=== PATIENT | female | born 1940 | race Hispanic/Latino ===

== ENCOUNTER 2017-11-26 14:45 | Inpatient (IN) | payer MEDICARE, OTHER ==
[~2017-11-26] VITALS: Ht 157.5 cm; Wt 83.2 kg
[2017-12-25] MEDS ORDERED: AMLO10TA7 PO (15:58)
[2017-12-25] MEDS ORDERED: METO100T14 PO (15:58)
[2018-10-28 16:38] VITALS: BP 143/67
[2018-10-28 16:45] LABS: BASOPHILS % (AUTO) 0.6 % (0.0-5.0); EOSINOPHILS % (AUTO) 5.5 % (0.0-8.0); HEMATOCRIT 36.8 % (36-48); LYMPHOCYTES % (AUTO) 32.9 % (21.0-51.0); MEAN CORPUSCULAR HEMOGLOBIN 30.8 pg (27.0-33.0); MEAN CORPUSCULAR HGB CONC 34.3 g/dL (32.0-36.0); MEAN CORPUSCULAR VOLUME 89.8 fL (79-99); MONOCYTES % (AUTO) 8.6 % (3.0-13.0); NEUTROPHILS % (AUTO) 52.4 % (40.0-77.0); NUCLEATED RED BLOOD CELLS 0.1 % (0.0-0.19); PLATELET COUNT (AUTO) 237 K/uL (130-400); RED CELL DISTRIBUTION WIDTH 13.2 % (11.0-15.5); WHITE BLOOD COUNT (AUTO) 6.9 K/uL (4.8-10.8)
[2018-10-28 16:45] LABS: APPEARANCE,URINE Clear (CLEAR); BILIRUBIN,URINE Negative (NEGATIVE); COLOR,URINE Yellow (YELLOW); GLUCOSE, URINE (UA) Negative (NEGATIVE); KETONES,URINE Negative (NEGATIVE); LEUKOCYTE ESTERASE ,URINE Negative (NEGATIVE); NITRATE,URINE Negative (NEGATIVE); OCCULT BLOOD,URINE Negative (NEGATIVE); PH,URINE 6.5 (5.0-8.0); PROTEIN,URINE Negative (NEGATIVE)
[2018-10-28 16:58] LABS: INR 0.91 (0.85-1.15); PARTIAL THROMBOPLASTIN TIME 27.3 SEC (26.3-35.5); PROTHROMBIN TIME 9.6 SEC (9.6-11.6)
[2018-10-28] MEDS ORDERED: CLOP75TA14 PO (17:21)
--- NOTE | 2018-10-28 18:30 | NUR ---
PLAVIX PT STATES THAT SHE TAKES PLAVIX. COMPARED TO CARDIAC CLEARANCE STATES EILIQUIS. INFORMED HER TO BRING ALL MEDICATIONS BOTTLES TO COMPARE. INFORMED DR. ZURITA SHE TOOK ELIQUIS AND STOPPED 2 DAYS AGO. PROCEED WITH PLANNED PROCEDURE.
[2018-10-29] VITALS (22 sets, daily range): BP systolic 126–159; BP diastolic 61–88
--- NOTE | 2018-10-29 07:30 | NUR ---
POTENTIAL FOR INFECTION: NO SHAVING TO RIGHT LEG / KNEE VOICED PER SONI ALLEN MA. WIPED WITH SANDY: 2% CHLORHEXIDINE GLUCONATE CLOTH PATIENTS PRE-OP SKIN PREP PER SONI ALLEN MA.
[2018-10-29] MEDS: CEFAZOLIN SODIUM 1 GM VIAL IVP SCH ×3 (08:00→19:58)
[2018-10-29] MEDS ORDERED: LACTATED RINGERS 1000ML 1,000 ML IV ONE (08:01)
[2018-10-29] MEDS ORDERED: ACETAMINOPHEN EXTRA STRENGTH 500 MG TABLET ONE (08:21)
[2018-10-29] MEDS ORDERED: OXYCODONE HCL 10 MG TAB.SR.12H PO ONE (08:22)
[2018-10-29] MEDS ORDERED: CEFAZOLIN SODIUM 1 GM VIAL ONE ×2 (08:28→11:31)
[2018-10-29] MEDS ORDERED: THROMBIN-JMI 5000 UNIT/VIAL TP ONE (08:29)
[2018-10-29] MEDS ORDERED: SIMV40TA59 PO (08:51)
[2018-10-29] MEDS ORDERED: APIX5TAB PO (08:51)
[2018-10-29] MEDS ORDERED: HYDR25TA PO (08:51)
[2018-10-29] MEDS ORDERED: AMLO10TA7 PO (08:51)
[2018-10-29] MEDS ORDERED: ESCI10TA54 PO (08:51)
[2018-10-29] MEDS ORDERED: MEMA10TA20 PO (08:51)
[2018-10-29] MEDS ORDERED: DEXAMETHASONE SOD PHOSPHATE 10MG/ML 1ML VIAL ONE (10:45)
[2018-10-29] MEDS ORDERED: LIDOCAINE PF 2% 5ML ABBOJECT ONE ×2 (10:45→10:48)
[2018-10-29] MEDS ORDERED: SUCCINYLCHOLINE 200MG/10ML SYR ONE (10:45)
[2018-10-29] MEDS ORDERED: PROPOFOL 10 MG/ML 20ML VIAL IV ONE (10:46)
[2018-10-29] MEDS ORDERED: ONDANSETRON HCL 4 MG/2 ML VIAL ONE (10:46)
[2018-10-29] MEDS ORDERED: ROCURONIUM 10MG/1ML SYR 10 MG/ML ML ONE (10:46)
[2018-10-29] MEDS ORDERED: GLYCOPYRROLATE 1 MG/5 ML SYRINGE ONE (10:46)
[2018-10-29] MEDS ORDERED: NEOSTIGMINE 5MG/5ML SYR IV ONE (10:46)
[2018-10-29] MEDS ORDERED: MIDAZOLAM HCL 1 MG/ML 2ML VIAL ONE (10:46)
[2018-10-29] MEDS ORDERED: FENTANYL CITRATE PF 50 MCG/1 ML 2ML VIAL ONE (10:46)
[2018-10-29] MEDS ORDERED: ROPIVACAINE 0.5% 5MG/ML 30ML IJ ONE (10:56)
[2018-10-29] MEDS ORDERED: CALCIUM CARBONATE 500 MG TABLET PO PRN (13:15)
[2018-10-29] MEDS ORDERED: ONDANSETRON HCL 4 MG/2 ML VIAL IVP PRN (13:15)
[2018-10-29] MEDS ORDERED: DiphenhydrAMINE HCL 50 MG/ML VIAL IVP PRN (13:15)
[2018-10-29] MEDS ORDERED: POTASSIUM CHLORIDE 20MEQ/100ML 100 ML IV PRN (13:15)
[2018-10-29] MEDS ORDERED: OXYCODONE HCL 5 MG TAB PO PRN (13:15)
[2018-10-29] MEDS ORDERED: TRAMADOL HCL 50 MG TABLET PO PRN (13:15)
[2018-10-29] MEDS ORDERED: KETOROLAC TROMETHAMINE 15MG/ML IV PRN (13:15)
[2018-10-29] MEDS ORDERED: POTASSIUM CHLORIDE 10% ELIXIR 20 MEQ/15 ML UDCUP PO PRN (13:15)
[2018-10-29] MEDS ORDERED: POTASSIUM CHLORIDE 20 MEQ ERTAB PO PRN (13:15)
[2018-10-29] MEDS ORDERED: LIDOCAINE HCL-MPF 1% 2ML VIAL IVP PRN (13:15)
[2018-10-29] MEDS ORDERED: TEMAZEPAM 15 MG CAPSULE PO PRN (13:15)
[2018-10-29] MEDS ORDERED: FERROUS FUMARATE 324 MG TABLET PO PRN (13:15)
[2018-10-29] MEDS ORDERED: MEPERIDINE-PF 25 MG/ML SYG ONE ×2 (14:02→14:10)
--- NOTE | 2018-10-29 14:40 | NUR ---
Admitted pt to room 432, very sleepy but arousable, no distress observed. Right knee dressing clean and dry. Daughter at beside visiting
--- NOTE | 2018-10-29 16:21 | NUR ---
INITIAL MET W PT AND FAMILY, PT S/P TKA, W REQUEST FOR REHAB; , PT DROWSY BUT ORIENTED LIVES W SPOUSE, PREV IND OF ADLS, NO DME, REQ FOR [facility], REFERRAL SENT, PENDING PT NOTES, WILL FOLLOW. DME ORDER TO [facility] Addendum: 10/31/18 at 1623 by JAVIER BATISTA RN Amended: Links added.
[2018-10-29] MEDS: SODIUM CHLORIDE 0.9% 1000ML 1,000 ML IV SCH (16:55)
[2018-10-29] MEDS ORDERED: NON-FORMULARY MEDICATION 1 EACH (Escitalopram Oxalate 10 MG) PO PRN (20:00)
[2018-10-29] MEDS: MEMANTINE HCL 5 MG TABLET PO SCH (22:06)
[2018-10-29] MEDS: SIMVASTATIN 20 MG TABLET PO SCH (22:06)
[2018-10-29] MEDS: CELECOXIB 200 MG CAP PO SCH (22:06)
[2018-10-29] MEDS: PREGABALIN 25 MG CAP PO SCH (22:06)
[2018-10-29] MEDS: METOPROLOL TARTRATE 50 MG TAB PO SCH (22:07)
[2018-10-30] VITALS (7 sets, daily range): BP systolic 91–128; BP diastolic 45–75
[2018-10-30] MEDS: CEFAZOLIN SODIUM 1 GM VIAL IVP SCH (03:19)
[2018-10-30] MEDS: SODIUM CHLORIDE 0.9% 1000ML 1,000 ML IV SCH ×2 (03:21→08:58)
[2018-10-30 05:36] LABS: HEMATOCRIT 29.2 % (36-48); MEAN CORPUSCULAR HEMOGLOBIN 31.4 pg (27.0-33.0); MEAN CORPUSCULAR VOLUME 89.8 fL (79-99); NUCLEATED RED BLOOD CELLS 0.1 % (0.0-0.19); PLATELET COUNT (AUTO) 188 K/uL (130-400); RED BLOOD CELL COUNT(AUTO) 3.25 MIL/uL (4.00-5.50); RED CELL DISTRIBUTION WIDTH 13.4 % (11.0-15.5); WHITE BLOOD COUNT (AUTO) 8.8 K/uL (4.8-10.8)
[2018-10-30 05:57] LABS: POTASSIUM 3.6 mmol/L (3.5-5.1)
[2018-10-30] MEDS: APIXABAN 5 MG TABLET PO SCH ×2 (08:44→21:42)
[2018-10-30] MEDS: POLYETHYLENE GLYCOL 3350 17 GM POWD.PACK PO SCH (08:44)
[2018-10-30] MEDS: CELECOXIB 200 MG CAP PO SCH ×2 (08:44→21:42)
[2018-10-30] MEDS: FAMOTIDINE 20MG TAB 20 MG TAB PO SCH (08:44)
[2018-10-30] MEDS: PREGABALIN 25 MG CAP PO SCH ×2 (08:45→21:42)
[2018-10-30] MEDS: METOPROLOL TARTRATE 50 MG TAB PO SCH ×2 (08:49→21:42)
[2018-10-30] MEDS: AMLODIPINE BESYLATE 5 MG TAB PO SCH (08:49)
[2018-10-30] MEDS: HYDROCHLOROTHIAZIDE 25 MG TABLET PO SCH (08:49)
--- NOTE | 2018-10-30 09:00 | NUR ---
PT NOTES SENT, AUTH PENDING Addendum: 10/31/18 at 1628 by JAVIER BATISTA RN CM Amended: Links added.
[2018-10-30] MEDS: OXYCODONE HCL 5 MG TAB PO PRN ×2 (11:05→13:26)
[2018-10-30] MEDS: SIMVASTATIN 20 MG TABLET PO SCH (21:42)
[2018-10-30] MEDS: MEMANTINE HCL 5 MG TABLET PO SCH (21:42)
[2018-10-31 03:39] VITALS: BP 102/42
[2018-10-31 07:30] VITALS: BP 110/54
[2018-10-31] MEDS: METOPROLOL TARTRATE 50 MG TAB PO SCH (09:00)
[2018-10-31] MEDS: AMLODIPINE BESYLATE 5 MG TAB PO SCH (09:00)
[2018-10-31] MEDS: HYDROCHLOROTHIAZIDE 25 MG TABLET PO SCH (09:00)
[2018-10-31] MEDS: PREGABALIN 25 MG CAP PO SCH (09:01)
[2018-10-31] MEDS: APIXABAN 5 MG TABLET PO SCH (09:01)
[2018-10-31] MEDS: FAMOTIDINE 20MG TAB 20 MG TAB PO SCH (09:02)
[2018-10-31] MEDS: POLYETHYLENE GLYCOL 3350 17 GM POWD.PACK PO SCH (09:02)
[2018-10-31] MEDS: CELECOXIB 200 MG CAP PO SCH (09:02)
[2018-10-31] MEDS: OXYCODONE HCL 5 MG TAB PO PRN (09:05)
[2018-10-31 11:00] VITALS: BP 101/44
--- NOTE | 2018-10-31 13:30 | NUR ---
DEE WOOTEN FOR DE[facility] L[facility] ORTEGAPLAN TODAY TO FACILITY Addendum: 10/31/18 at 1629 by JAVIER BATISTA RN CM Amended: Links added.
[2018-10-31] MEDS ORDERED: OXYC5 PO (15:06)
[2018-10-31 16:00] VITALS: BP 123/57
--- NOTE | 2018-10-31 17:01 | NUR ---
[facility] FAXED- [facility] NOT WORKING [facility] COPY IN CHART Addendum: 11/01/18 at 0926 by JAVIER BATISTA RN CM Amended: Links added.
--- NOTE | 2018-10-31 18:50 | NUR ---
DISCHARGE DISCHARGE TEACHING DONE WITH PATIENT AND FAMILY USING TEACHBACK METHOD, VERBALIZED UNDERSTANDING. NO NOTED SOB OR DISTRESS. NEW MEDICATION ADMINISTRATION TEACHING DONE WITH PATIENT, VERBALIZED UNDERSTANDING. PT AWARE OF NEED TO ATTEND DR. ZURITA APPOINTMENT. DRESSING TO KNEE DRY AND INTACT. DRESSING CHANGED PER DR. ZURITA, INCISION IS DRY AND INTACT. DRESSING TEACHING DONE WITH PATIENT, VERBALIZED UNDERSTANDING. IV REMOVED, CATH TIP INTACT. PENDING TO BE TRANSFERRED OUT VIA PRIVATE VEHICLE. REPORT CALLED TO [facility].
[2018-11-01] MEDS ORDERED: BISACODYL 10 MG SUPP.RECT RC PRN (13:15)
== END 2018-10-31 19:17 | disposition home health service (06) | DRG 470 ==
LOC: EDSTATUS 14:45 → DAHIP 10-29 07:13 → 4AH 10-29 13:36
PROVIDERS: ADMIT Orthopaedic Surgery; ATTEND Orthopaedic Surgery
PROC: 0SRC0J9 Replacement of Right Knee Joint with Synthetic Substitute, Cemented, Open Approach (ICD-10-PCS; principal; 2018-10-29 10:40)
PROC: 0SUV09Z Supplement Right Knee Joint, Tibial Surface with Liner, Open Approach (ICD-10-PCS; 2018-10-29 10:40)
DX: M17.11 Unilateral primary osteoarthritis, right knee (principal); E78.5 Hyperlipidemia, unspecified; I48.0 Paroxysmal atrial fibrillation; F03.90 Unspecified dementia, unspecified severity, without behavioral disturbance, psychotic disturbance, mood disturbance, and anxiety; I35.0 Nonrheumatic aortic (valve) stenosis; G89.29 Other chronic pain; I11.9 Hypertensive heart disease without heart failure; Z79.01 Long term (current) use of anticoagulants; Z88.8 Allergy status to other drugs, medicaments and biological substances; Z86.73 Personal history of transient ischemic attack (TIA), and cerebral infarction without residual deficits; Z90.710 Acquired absence of both cervix and uterus; Z82.49 Family history of ischemic heart disease and other diseases of the circulatory system
CPT/HCPCS: 36415; 80048; 81003; 85025; 85027; 85610; 85730; 87641; 88305; 88311; 97039; G0378; J0330; J0690; J1100; J2001; J2175; J2250; J2405; J2704; J2710; J2795; J3010; J3490; J7030; J7120

== ENCOUNTER → 2018-03-04 | Outpatient (CLI) | payer MEDICARE ==
[~2018-03-04] MED LIST: AMLO10TA6 PO; ASPI-1181 PO; LISI40TA4 PO; METO100T14 PO
== END | disposition home or self-care (01) ==
LOC: SHCH 14:04
PROVIDERS: ATTEND Internal Medicine Cardiovascular Disease
DX: I25.119 Atherosclerotic heart disease of native coronary artery with unspecified angina pectoris (principal); I51.7 Cardiomegaly; R06.02 Shortness of breath; Z95.2 Presence of prosthetic heart valve
CPT/HCPCS: 93306

== ENCOUNTER → 2018-10-01 | Outpatient (CLI) | payer MEDICARE ==
[~2018-10-01] MED LIST changes: -AMLO10TA6 PO; +AMLO10TA7 PO
== END | disposition home or self-care (01) ==
LOC: RAH 10:32
PROVIDERS: ATTEND Internal Medicine
DX: Z01.818 Encounter for other preprocedural examination (principal); I70.0 Atherosclerosis of aorta; I10 Essential (primary) hypertension; Q25.46 Tortuous aortic arch
CPT/HCPCS: 71046

== ENCOUNTER 2019-12-22 06:17 | Day surgery (SDC) | payer MEDICARE ==
[2019-12-21 11:56] LABS: BASOPHILS % (AUTO) 0.9 % (0.0-5.0); EOSINOPHILS % (AUTO) 5.5 % (0.0-8.0); HEMATOCRIT 36.8 % (36-48); LYMPHOCYTES % (AUTO) 26.2 % (21.0-51.0); MEAN CORPUSCULAR HEMOGLOBIN 30.2 pg (27.0-33.0); MEAN CORPUSCULAR HGB CONC 33.7 g/dL (32.0-36.0); MEAN CORPUSCULAR VOLUME 89.5 fL (79-99); MONOCYTES % (AUTO) 8.8 % (3.0-13.0); NEUTROPHILS % (AUTO) 58.5 % (40.0-77.0); PLATELET COUNT (AUTO) 241 K/uL (130-400); RED BLOOD CELL COUNT(AUTO) 4.11 MIL/uL (4.00-5.50); RED CELL DISTRIBUTION WIDTH 12.7 % (11.0-15.5); WHITE BLOOD COUNT (AUTO) 6.7 K/uL (4.8-10.8)
[2019-12-21 12:05] LABS: CREATININE 1.3 mg/dL (0.5-1.5); POTASSIUM 3.8 mmol/L (3.5-5.1)
[2019-12-21 12:10] LABS: INR 0.92 (0.85-1.15); PARTIAL THROMBOPLASTIN TIME 26.9 SEC (26.3-35.5)
[2019-12-21 14:11] VITALS: BP 135/70
[2019-12-22] VITALS (13 sets, daily range): BP systolic 105–158; BP diastolic 65–90
[~2019-12-22] VITALS: Ht 160 cm; Wt 81.6 kg
[~2019-12-22 06:17] MED LIST changes: -ASPI-1181 PO; +ASPI-1443 PO; +CEFAZOLIN SODIUM 1 GM VIAL IVP SCH; +HYDR25TA PO; +LISI2.5T2 PO; -LISI40TA4 PO; -METO100T14 PO; +METO25TA6 PO; +ROSU5TAB12 PO; +SODIUM CHLORIDE 0.9% 500ML 500 ML IV SCH
[2019-12-22] MEDS ORDERED: METO25TA6 PO (07:07)
[2019-12-22] MEDS ORDERED: SODIUM CHLORIDE 0.9% 1000ML 1,000 ML IV ONE (07:08)
[2019-12-22] MEDS ORDERED: BUPIVACAINE/PF 0.25% 30ML VIAL IJ ONE (07:21)
[2019-12-22] MEDS ORDERED: MEPERIDINE-PF 25 MG/ML SYG ONE ×2 (07:21→07:22)
[2019-12-22] MEDS ORDERED: MIDAZOLAM HCL 1 MG/ML 2ML VIAL ONE ×2 (07:21→07:22)
[2019-12-22] MEDS ORDERED: IOHEXOL-350 50ML VIAL IV ONE (07:21)
[2019-12-22] MEDS ORDERED: CEFAZOLIN SODIUM 1 GM VIAL ONE (07:21)
[2019-12-22] MEDS ORDERED: LIDOCAINE HCL 1% MDV 50ML VIAL ONE (07:21)
[2019-12-22] MEDS ORDERED: TRAM50TA4 PO (09:34)
--- NOTE | 2019-12-22 15:17 | NUR ---
REPORT RECEIVED REPORT FROM LAUREN RICARDO. PT AAOX3. SITE TO LEFT UPPER CHEST SOFT TO TOUCH. SLIGHT SANGUINOUS MARKED BY LAUREN RICARDO. DRSG TO MID LEFT STERNAL SOFT TO TOUCH. SANGUINOUS DRSG MARKED BY LAUREN RICARDO. PT DENIES ANY PAIN AT THIS TIME.
--- NOTE | 2019-12-22 15:27 | NUR ---
Gave report to Alpa Sue RN, pt stable no distress noted, pacemaker site to left chest wall swelling x2, both dressing marked at blood spot, pending xray and md to evaluate xray, patient will continue to be monitored.
--- NOTE | 2019-12-22 16:05 | NUR ---
SR ERICK, VETERANS SERVICES SPECIALIST FOR [employer] HERE TO EVALUATE PM.
--- NOTE | 2019-12-22 16:10 | NUR ---
CHEST XRAY CHEST XRAY TAKEN AT BEDSIDE.
--- NOTE | 2019-12-22 16:13 | NUR ---
SITE CHECK SITE TO LEFT UPPER CHEST SOFT TO TOUCH. SLIGHT SANGUINOUS MARKED BY LAURNE RICARDO. DRSG TO MID LEFT STERNAL SOFT TO TOUCH. SANGUINOUS DRSG MARKED BY LAUREN RICARDO. PT DENIES ANY PAIN AT THIS TIME.
--- NOTE | 2019-12-22 16:38 | NUR ---
CHEST XRAY DR. RUDD EVALUATED CHEST X RAY OF PT.
--- NOTE | 2019-12-22 16:50 | NUR ---
DR. TOBIN RUDD ON PHONE. PT CAN BE DISCHARGED HOME.
== END 2019-12-22 17:35 | disposition home or self-care (01) ==
LOC: DAH 06:17
PROVIDERS: ATTEND Internal Medicine Cardiovascular Disease
DX: I44.2 Atrioventricular block, complete (principal); Z45.09 Encounter for adjustment and management of other cardiac device; I49.5 Sick sinus syndrome; I48.0 Paroxysmal atrial fibrillation; E78.5 Hyperlipidemia, unspecified; I10 Essential (primary) hypertension; M19.90 Unspecified osteoarthritis, unspecified site; F03.90 Unspecified dementia, unspecified severity, without behavioral disturbance, psychotic disturbance, mood disturbance, and anxiety; Z79.01 Long term (current) use of anticoagulants; Z79.899 Other long term (current) drug therapy; Z95.2 Presence of prosthetic heart valve; Z79.82 Long term (current) use of aspirin; Z86.73 Personal history of transient ischemic attack (TIA), and cerebral infarction without residual deficits; Z98.890 Other specified postprocedural states; Z90.710 Acquired absence of both cervix and uterus; Z82.49 Family history of ischemic heart disease and other diseases of the circulatory system; Z88.8 Allergy status to other drugs, medicaments and biological substances; Z96.651 Presence of right artificial knee joint
CPT/HCPCS: 33208; 33286; 36415; 71045; 80048; 85025; 85610; 85730; 93005; A4215; A4216; A4221; A4222; A4223 ×3; A4606; A4649; A4663; A6258; A6402; C1785; C1898 ×2; J0690; J2175 ×2; J2250 ×2; J3490 ×2; J7030; 99156; 99157; Q9967

== ENCOUNTER → 2021-05-02 | Outpatient (CLI) | payer MEDICARE ==
[~2021-05-02] MED LIST changes: +AMLO-258 PO; -AMLO10TA7 PO; -CEFAZOLIN SODIUM 1 GM VIAL IVP SCH; +LISI2.5T13 PO; -LISI2.5T2 PO; -SODIUM CHLORIDE 0.9% 500ML 500 ML IV SCH; +TRAM50TA4 PO
== END | disposition home or self-care (01) ==
LOC: RAH 16:22
PROVIDERS: ATTEND Internal Medicine
DX: M19.031 Primary osteoarthritis, right wrist (principal); M79.641 Pain in right hand; W19.XXXA Unspecified fall, initial encounter; Y93.89 Activity, other specified; Y92.89 Other specified places as the place of occurrence of the external cause; Y99.8 Other external cause status
CPT/HCPCS: 73110; 73130

== ENCOUNTER → 2023-04-19 | Outpatient (CLI) | payer MEDICARE | END | disposition home or self-care (01) | LOC: RAH 11:57 | PROVIDERS: ATTEND Internal Medicine | DX: M47.815 Spondylosis without myelopathy or radiculopathy, thoracolumbar region (principal); Z95.0 Presence of cardiac pacemaker | CPT/HCPCS: 71046 ==

== ENCOUNTER → 2023-06-19 | Outpatient (CLI) | payer MEDICARE | END | disposition home or self-care (01) | LOC: RAH 12:47 | PROVIDERS: ATTEND Internal Medicine Cardiovascular Disease | DX: I07.1 Rheumatic tricuspid insufficiency (principal); Z95.2 Presence of prosthetic heart valve | CPT/HCPCS: 93306 ==

== ENCOUNTER → 2025-02-26 | Outpatient (CLI) | payer MEDICARE ==
[~2025-02-26] MED LIST changes: -ROSU5TAB12 PO; +ROSU5TAB51 PO
--- NOTE | 2025-02-26 15:53 | HMCIMG ---
CHEST 2VWS REASON: BRONCHITIS COMPARISON: Prior study from 04/19/2023 is available. FINDINGS: Two views of the chest were obtained. Lungs are clear.There is mildly enlarged with median sternotomy. There is a cardiac prosthesis in place.. There is a left-sided pacemaker with lead in right atrium and right ventricle. There is uncoiling atherosclerotic change of thoracic aorta.. There is no pulmonary vascular congestion. Mediastinum and bony thorax appear unremarkable. This study is unchanged from prior study. IMPRESSION: 1. Mild cardiomegaly with median sternotomy with cardiac prosthesis in place 2. No evidence of airspace consolidation or pulmonary venous congestion..
== END | disposition home or self-care (01) ==
LOC: RAH 12:37
PROVIDERS: ATTEND Internal Medicine
DX: J40 Bronchitis, not specified as acute or chronic (principal); I70.0 Atherosclerosis of aorta; I51.7 Cardiomegaly
CPT/HCPCS: 71046

== ENCOUNTER 2025-05-04 15:51 | Inpatient (IN) | payer MEDICARE ==
[~2025-05-04] VITALS: Ht 160 cm; Wt 79.5 kg
--- NOTE | 2025-05-04 16:00 | NUR ---
PT JUST NOW PLACED IN ED BED 10
--- NOTE | 2025-05-04 16:08 | EKG ---
[facility] Test Date: 2025-05-04 Test Time: 16:06:08 Pat Name: CATHERINE OROZCO Department: ED Room: Gender: F Event Representative: [id number] : [id number] Requested By: JAIME BRITTON Order Number: [id number] Reading MD: Milton Sofia Measurements Intervals [place] Rate: 87 P: 260 ND: 187 QRS: 98 QRSD: 108 T: 2 QT: 412 QTc: 496 Interpretive Statements A-V dual-paced rhythm with some inhibition Compared to ECG 12/21/2019 11:39:53 Sinus rhythm no longer present First degree AV block no longer present T-wave abnormality no longer present Electronically Signed On 05-04-2025 16:17:07 LUMBER RACKER by Milton Sofia Please click the below link to view image of tracing.
[2025-05-04 16:23] LABS: IMMATURE GRANULOCYTE ABSOLUTE 0.02 K/uL (0-1); NUCLEATED RED BLOOD CELLS 0.0 % (0.0-0.19); PLATELET COUNT (AUTO) 193 K/uL (130-400); RED BLOOD CELL COUNT(AUTO) 4.01 MIL/uL (4.00-5.50); RED CELL DISTRIBUTION WIDTH 12.6 % (11.0-15.5); WHITE BLOOD COUNT (AUTO) 7.5 K/uL (4.8-10.8)
[2025-05-04 16:34] LABS: INR <= 0.93 (0.85-1.15)
[2025-05-04 16:41] LABS: CREATININE 1.5 mg/dL (0.5-1.0); GLOMERULAR FILTR. RATE CALC 35.0 mL/min (>90); GLUCOSE,RANDOM 68.0 mg/dL (70-105); SODIUM SERUM 136.0 mmol/L (136-145); UREA NITROGEN, BLOOD 33.0 mg/dL (7-18)
[2025-05-04] MEDS: DEXTROSE 50%-WATER 50 ML DISP.SYRIN IV ONE (17:12)
[2025-05-04] MEDS: DEXTROSE 10%-WATER 1,000 ML IV SCH ×2 (17:27→19:36)
--- NOTE | 2025-05-04 17:50 | ERN ---
General Chief Complaint: Hypoglycemia Stated Complaint: HYPOGLYCEMIA Time Seen by MD: 16:00 Source: patient, family History of Present Illness Initial Comments Ms Garrett, 84F with past history of recurrent hypoglycemic episodes came to ED with chief complaint of hypoglycemic symptoms since last night. She reports she has been recording her glucose which have been consistently low in the 40s and 50s, though with food intake. She reports the episode started last summer and she had intense workup with different physicians , admitted in our [place], received multiple Dextrose IV drips and got discharged. also she remembers raise d C-peptide and insulin levels. 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 Timing/Duration: constant Severity: moderate Modifying Factors: improves with eating Associated Symptoms: diaphoresis, malaise Allergies: Coded Allergies: acetaminophen (Unverified Allergy, Unknown, 10/28/18) Home Meds Active Scripts Tramadol Hcl (Tramadol HCl) 50 Mg Tablet, 50 MG PO Q6HPRN PRN for PAIN LEVEL 6 TO 10, #30 TAB 0 Refills Prov:CARRINGTON RUDD MD 12/22/19 Reported Medications Metoprolol Tartrate (Metoprolol Tartrate) 25 Mg Tablet, 25 MG PO BID, TAB 12/22/19 Aspirin (Aspirin EC) 81 Mg Tablet.dr, 81 MG PO DAILY, TAB 12/21/19 Lisinopril (Lisinopril) 2.5 Mg Tablet, 2.5 MG PO HS, TAB 12/21/19 Rosuvastatin Calcium (Rosuvastatin Calcium) 5 Mg Tablet, 5 MG PO HS, TAB 12/21/19 Amlodipine Besylate (Amlodipine Besylate) 10 Mg Tablet, 10 MG PO AM, TAB 10/29/18 Hydrochlorothiazide (Hydrochlorothiazide) 25 Mg Tablet, 25 MG PO AM, TAB 10/29/18 Past Medical History Past Medical History: Hypertension Past Surgical History: Pacer/AICD Surgical History Other: AORTIC VALVE REPLACEMENT Constitutional: (+) malaise Cardiovascular: (+) palpitations Physical Exam General Appearance: (+) no apparent distress Orientation: (+) alert, (+) oriented x 3 Head/Face Trauma: No Eye: bilateral eye normal inspection Ear, Nose, Throat: (+) hearing grossly normal, (+) normal ENT inspection Neck: (+) normal inspection, (+) supple Respiratory: (+) chest non-tender, (+) lungs clear, (+) well ventilated Heart: (+) regular, (+) no gallop Vascular: (+) no edema Gastrointestinal: (+) soft, (+) non-tender Breast Exam: (+) deferred Genital: (+) deferred Rectal: (+) deferred Back: (+) normal inspection Extremities: (+) normal range of motion, (+) non-tender Neurologic/Psychiatric: (+) normal speech, (+) no motor defecits, (+) no sensory deficits Skin: (+) normal color Results Laboratory and Microbiology Lab and Micro Result Laboratory Tests Test 05/04/25 15:55 05/04/25 16:11 05/04/25 17:12 05/04/25 18:07 Whole Blood Glucose 58 MG/DL (70-110) L 43 MG/DL (70-110) *L 117 MG/DL (70-110) #H White Blood Count 7.5 K/uL (4.8-10.8) Red Blood Count 4.01 MIL/uL (4.00-5.50) Hemoglobin 11.6 g/dL (12.0-16.0) L Hematocrit 35.9 % (36-48) L Mean Corpuscular Volume 89.5 fL (79-99) Mean Corpuscular Hemoglobin 28.9 pg (27.0-33.0) Mean Corpuscular Hemoglobin Concent 32.3 g/dL (32.0-36.0) Red Cell Distribution Width 12.6 % (11.0-15.5) Platelet Count 193 K/uL (130-400) Mean Platelet Volume 8.9 fL (7.5-10.5) Immature Granulocyte % (Auto) 0.3 % (0-1) Neutrophils (%) (Auto) 71.3 % (40.0-77.0) Lymphocytes (%) (Auto) 17.3 % (21.0-51.0) L Monocytes (%) (Auto) 9.1 % (3.0-13.0) Eosinophils (%) (Auto) 1.6 % (0.0-8.0) Basophils (%) (Auto) 0.4 % (0.0-5.0) Neutrophils # (Auto) 5.3 K/uL (1.8-7.7) Lymphocytes # (Auto) 1.3 K/uL (1.0-4.8) Monocytes # (Auto) 0.7 K/uL (0.1-1.0) Eosinophils # (Auto) 0.12 K/uL (0.00-0.70) Basophils # (Auto) 0.03 K/uL (0.00-0.20) Absolute Immature Granulocyte (auto 0.02 K/uL (0-1) Nucleated Red Blood Cells 0.0 % (0.0-0.19) Prothrombin Time 9.9 SEC (9.6-11.6) Prothromb Time International Ratio <= 0.93 (0.85-1.15) Activated Partial Thromboplast Time 25.2 SEC (26.3-35.5) L Sodium Level 136 mmol/L (136-145) Potassium Level 4.7 mmol/L (3.5-5.1) Chloride Level 101 mmol/L (101-111) Carbon Dioxide Level 29 mmol/L (21-32) Blood Urea Nitrogen 33 mg/dL (7-18) H Creatinine 1.5 mg/dL (0.5-1.0) H Glomerular Filtration Rate Calc 35 mL/min (>90) Random Glucose 68 mg/dL (70-105) L Total Calcium 8.9 mg/dL (8.5-10.1) Troponin I High Sensitivity 21 ng/L (4-50) MDM Differential diagnosis: Recurrent hypoglycemia The patient was brought to the ED by her daughter for severe hypoglycemia symptoms since last night. In the ER we ordered CBC, BMP, PT AND PTT, EKG she received dextrose 50 mg IV twice and continuous dextrose 10 MG drip The patient meets the criteria for hospitalization and will be admitted under hospitalist care for further workup and management ED Course Orders Procedure Category Date Status Time 12 Lead Ekg Tracing- EKG 05/04/25 Resulted Technical 16:00 Cbc With Differential LAB 05/04/25 Complete 16:00 Basic Metabolic Panel LAB 05/04/25 Complete 16:00 Pt And Ptt LAB 05/04/25 Complete 16:00 Troponin I High LAB 05/04/25 Complete Sensitivity 16:00 Dextrose 50%-Water PHA 05/04/25 Complete (D50w) 16:00 Dextrose 10%-Water PHA 05/04/25 In Process (D10w) 17:30 Current Medications Medications (Trade) Dose Ordered Sig/Miri Route PRN Reason Start Time Stop Time Status Last Admin Dose Admin Dextrose 1,000 ml @ 75 mls/hr [id number] IV 05/04/25 17:30 06/03/25 17:29 05/04/25 17:27 Dextrose (D50w) 50 ml ONCE ONCE IV 05/04/25 16:00 05/04/25 16:03 DC 05/04/25 17:12 Vital Signs Date Time Temp Pulse Resp B/P (MAP) Pulse Ox O2 Delivery O2 Flow Rate FiO2 05/04/25 15:52 98.8 97 18 167/98 97 Room Air DX & DISP Disposition: Inpatient Departure Impression: Primary Impression: Recurrent severe hypoglycemia Critical Time: 45 minutes Condition: Stable Referrals: TAI LEUNG MD (PCP) NUHA BROWN MD May 04, 2025 17:50 JAIME BRITTON MD May 04, 2025 18:15
--- NOTE | 2025-05-04 18:30 | NUR ---
HOSPITALIST DIESEL TRUCK MECHANIC AT BEDSIDE ASSESSING THE PT.
--- NOTE | 2025-05-04 18:50 | HP ---
[facility] PH[facility] Date of Service: May 04, 2025 Time of Service: 18:50 PCP:Dany Boykin HISTORY OF PRESENT ILLNESS: This is an 84 year old female with past medical history of hypertension,hyperlipidemia,atrial fibrillation,TIA,early dementia,osteoart hritis with aortic valve stenosis with aortic valve replacement ,PPM and hypoglycemia who present to the ED for complaints of hypoglycemia symptoms since last night.Daughter Debbie was at bedside during my evaluation and reports,patient has been having episodes of hypoglycemia since last summer and had been seen by endocrinologists and PCP.Apparently patient has been travelling to [place] back and forth to visit her sick son and apparently according to the daughter patient was admitted to [place] on 04/21/2025 for similar complaints and was started on D10 W for almost 2days and eventually was weaned off and was discharged home she said.Last night patient blood sugar has been in the 40-50 again and was given with food and soda so today daughter decided to bring her to the ED for evaluation.Apparently patient has a scheduled MRI on May 29 for insulinoma detection but because of recurrent hypoglycemic episode patient brought here.According to the daughter patient used to be very active at home ,she goes out gardening and patient would complain of being diaphoretic and will just eat and symptoms goes away but her blood sugar kept dropping so patient is also getting weaker now. Seen and examined patient in the ED awake,alert and coherent,appears comfortable.Patient denies dizziness,headache,nausea,vomiting,chest pain,palpitation,abdominal pain and diarrhea. Latest vital signs temperature 98.8, heart rate 97, blood pressure 167/98 saturation 97% on room air. Labs: Hemoglobin 11, hematocrit 35, platelet count 193. BUN 33, creatinine 1.5, GFR 35 cm glucose 43 ,117 to 59 . troponin 21. While in the ER patient received D50 IVP and was started on D10W . We will admit patient for further medical management. REVIEW OF SYSTEMS CONSTITUTIONAL: Denies fevers, chills, or night sweats. No unintentional weight loss reported. NEUROLOGICAL: Denies headache, amaurosis fugax, motor weakness, sensory deficit, vertigo/spinning sensation, gait abnormalities, or tremors. ENT: No hearing loss, otalgia, otorrhea, rhinitis, rhinorrhea, hoarseness, or sore throat. CARDIOVASCULAR: Denies any exertional angina, dyspnea on exertion, orthopnea, paroxysmal nocturnal dyspnea, palpitations, life-threatening arrhythmias, claudication. PULMONARY: Denies any shortness of breath, cough, phlegm/sputum, hemoptysis, pleuritic chest pain. SLEEP: Denies morning headaches, daytime somnolence or napping. Denies difficulty falling asleep, staying asleep, waking from sleep. Denies knowledge of snoring. GASTROINTESTINAL: Denies any type of dysphagia to either liquids or solids. Denies nausea, vomiting, pyrosis, early satiety, abdominal pain, diarrhea, constipation, or changes in stool consistency or caliber. Denies coffee-ground emesis, hematemesis, hematochezia, or melanotic stools. GENITOURINARY: Denies frequency, urgency, nocturia, hematuria or incontinence (Storage/Irritative symptoms.) Low urinary stream, straining to void, urinary intermittency or hesitancy, splitting of the voiding stream, terminal dribbling. ENDOCRINOLOGIC: Denies polyuria, polydipsia, polyphagia or heat/cold intolerances. HEMATOLOGIC: Denies thrombophilia/previous clots, or coagulopathy/bleeding disorders. ONCOLOGIC: Denies personal history of malignancy. DERMATOLOGIC: Denies rashes or pruritus. PSYCHIATRIC: Denies any suicidal or homicidal ideation. Denies hallucinations. PAST MEDICAL HISTORY: [ hypertension,hyperlipidemia,atrial fibrillation,TIA,early dementia,osteoarthritis with aortic valve stenosis with aortic valve replacement ,PPM and hypoglycemia ] PAST SURGICAL HISTORY: [Ppm ,aortic valve replacement, hysterectomy and right total knee arthroplasty ] PAST SOCIAL HISTORY: [ Patient lives with daughter. Patient denies alcohol tobacco and recreational drug use ] FAMILY HISTORY: [ Hypertension, cardiovascular disease and cancer ] Coded Allergies: acetaminophen (Unverified Allergy, Unknown, 10/28/18) PHYSICAL EXAM GENERAL APPEARANCE: The patient is awake, alert, and oriented, in no acute cardiopulmonary distress. NEUROLOGICAL: Cranial nerves II-XII grossly intact. Motor is 5/5 in bilateral upper and lower extremities proximal to distal. No sensory deficits. HEENT: Face is symmetric. Pupils are equal and reactive. Extraocular movements are intact. NECK: Supple. No JVD. No thyromegaly. No submental, submandibular, pre- /postauricular, occipital or supraclavicular lymphadenopathy. CHEST: Normal chest expansion. No Telemetry. LUNGS: Absence of any rales, rhonchi or any wheezing. CARDIOVASCULAR: Regular. S1 and S2 normal. No appreciable rubs, murmurs or gallops. ABDOMEN: Soft, nontender, and nondistended. There is no rebound, voluntary guarding, or rigidity. : Deferred. No He. EXTREMITIES: Non-edematous and not cyanotic. No clubbing. Good capillary refill. SKIN: No skin breakdown. Vital Sign (Last 24 Hours) 05/04/25 15:52 Temp 98.8 Pulse 97 Resp 18 B/P (MAP) 167/98 Pulse Ox 97 O2 Delivery Room Air LABS: Laboratory: Test 05/04/25 18:07 05/04/25 16:11 Range/Units Whole Blood Glucose 117 #H 70-110 MG/DL White Blood Count 7.5 4.8-10.8 K/uL Red Blood Count 4.01 4.00-5.50 MIL/uL Hemoglobin 11.6 L 12.0-16.0 g/dL Hematocrit 35.9 L 36-48 % Mean Corpuscular Volume 89.5 79-99 fL Mean Corpuscular Hemoglobin 28.9 27.0-33.0 pg Mean Corpuscular Hemoglobin Concent 32.3 32.0-36.0 g/dL Red Cell Distribution Width 12.6 11.0-15.5 % Platelet Count 193 130-400 K/uL Mean Platelet Volume 8.9 7.5-10.5 fL Immature Granulocyte % (Auto) 0.3 0-1 % Neutrophils (%) (Auto) 71.3 40.0-77.0 % Lymphocytes (%) (Auto) 17.3 L 21.0-51.0 % Monocytes (%) (Auto) 9.1 3.0-13.0 % Eosinophils (%) (Auto) 1.6 0.0-8.0 % Basophils (%) (Auto) 0.4 0.0-5.0 % Neutrophils # (Auto) 5.3 1.8-7.7 K/uL Lymphocytes # (Auto) 1.3 1.0-4.8 K/uL Monocytes # (Auto) 0.7 0.1-1.0 K/uL Eosinophils # (Auto) 0.12 0.00-0.70 K/uL Basophils # (Auto) 0.03 0.00-0.20 K/uL Absolute Immature Granulocyte (auto 0.02 0-1 K/uL Nucleated Red Blood Cells 0.0 0.0-0.19 % Prothrombin Time 9.9 9.6-11.6 SEC Prothromb Time International Ratio <= 0.93 0.85-1.15 Activated Partial Thromboplast Time 25.2 L 26.3-35.5 SEC Sodium Level 136 136-145 mmol/L Potassium Level 4.7 3.5-5.1 mmol/L Chloride Level 101 101-111 mmol/L Carbon Dioxide Level 29 21-32 mmol/L Blood Urea Nitrogen 33 H 7-18 mg/dL Creatinine 1.5 H 0.5-1.0 mg/dL Glomerular Filtration Rate Calc 35 >90 mL/min Random Glucose 68 L 70-105 mg/dL Total Calcium 8.9 8.5-10.1 mg/dL Troponin I High Sensitivity 21 4-50 ng/L Current Medications Medications (Trade) Dose Ordered Sig/Miri Route PRN Reason Start Time Stop Time Status Last Admin Dose Admin Dextrose 1,000 ml @ 75 mls/hr [id number] IV 05/04/25 17:30 06/03/25 17:29 05/04/25 17:27 75 MLS/HR DIAGNOSTICS / RADIOLOGY: [ ] ASSESSMENT: Persistent hypoglycemia POA 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 We will add prn medication for fever,pain,cough , nausea and vomiting We will reconcile home meds once medlist available We will seek endocrinology consultation We will request labs in am Further orders to follow depending on above results Case discussed with attending physician and came up with above treatment and plan of care. ADVANCED CARE PLANNING 1. Which of the following were discussed? Hospice Care - No Therapeutic options - Yes Advance Directives - No Other discussions - 2. Discussed with who? Patient and daughter Debbie 3. Voluntary nature of this service was explained to the patient? Yes 4. Amount of time spent - __25 min 5. Reviewed by Physician? (if this service was performed by NPP) Yes Patient seen and examined by me. Agree with note by BOOKKEEPER SEE ADDITIONAL ORDERS PER CHART DISCUSSED WITH NURSING STAFF EMIR MONREAL CORPORATE BOND TRADER May 04, 2025 18:50
--- NOTE | 2025-05-04 18:59 | NUR ---
PT OOB TO BR W/ASSIST FROM HER DAUGHTER
[2025-05-04] MEDS ORDERED: PoTASSium chloRIDE 20MEQ ER 20 MEQ ERTAB PO PRN (19:00)
[2025-05-04] MEDS ORDERED: GLUCAGON 1MG KIT 1 MG ML IM PRN (19:00)
[2025-05-04] MEDS ORDERED: MAGNESIUM 2GM PREMIX 50ML 50 ML IV PRN (19:00)
[2025-05-04] MEDS ORDERED: PoTASSium chl 10% ELIXIR 20MEQ 20 MEQ/15 ML UDCUP PO PRN (19:00)
--- NOTE | 2025-05-04 19:11 | NUR ---
REPORT ENDORSED TO JB AGUILAR
--- NOTE | 2025-05-04 19:18 | NUR ---
PT CARE ASSUMED AT THIS TIME
[2025-05-04] MEDS: DEXTROSE 50%-WATER 50 ML DISP.SYRIN IV PRN (19:41)
--- NOTE | 2025-05-04 20:57 | NUR ---
CONSULTED WITH DR. VINSON AT THIS TIME VIA TELEPHONE ASKED BY ASSISTANT PROFESSOR SURGICAL TECHNOLOGY BERNARDO CHANG ABOUT BLOOD SUGAR LEVELS. VERBAL ORDERS TO LOWER DEXTROSE IV TO 50 MLS/HR AND TO CONTINUE Q1HR GLUCOSE CHECKS. NO FUTHER ORDERS GIVEN AT THIS TIME.
--- NOTE | 2025-05-04 21:34 | NUR ---
REPORT GIVEN TO SMITA AGUILAR AT THIS TIME
[2025-05-04 21:50] VITALS: O2SAT 98
[2025-05-04 22:00] VITALS: BP 171/98; PULSE 94; RESP 14; TEMP 98.1; O2SAT 98
[2025-05-04] MEDS ORDERED: ACAR25TA2 PO (23:48)
[2025-05-04] MEDS ORDERED: DILT240C93 PO (23:48)
[2025-05-04] MEDS ORDERED: DICL100G60 TP (23:48)
[2025-05-04] MEDS ORDERED: GLUC1VIA20 IJ (23:48)
[2025-05-04] MEDS ORDERED: ESCI5TAB16 PO (23:48)
[2025-05-04] MEDS ORDERED: APIX5TAB PO (23:48)
[2025-05-04] MEDS ORDERED: CHOL400T38 PO (23:48)
[2025-05-04] MEDS ORDERED: [UNRECOGNIZED DRUG - CODE] PO (23:48)
[2025-05-04] MEDS ORDERED: LIDO700A30 TP (23:48)
[2025-05-05] VITALS (10 sets, daily range): BP systolic 138–165; BP diastolic 72–102; PULSE 79–100; RESP 16–18; TEMP 97.4–98.5; O2SAT 98
[2025-05-05 04:42] LABS: IMMATURE GRANULOCYTE ABSOLUTE 0.03 K/uL (0-1); NUCLEATED RED BLOOD CELLS 0.0 % (0.0-0.19); PLATELET COUNT (AUTO) 199 K/uL (130-400); RED BLOOD CELL COUNT(AUTO) 3.96 MIL/uL (4.00-5.50); RED CELL DISTRIBUTION WIDTH 12.7 % (11.0-15.5); WHITE BLOOD COUNT (AUTO) 7.0 K/uL (4.8-10.8)
[2025-05-05 05:14] LABS: ASPARTATE AMINOTRANSFERASE 24.0 U/L (10-37); CREATININE 1.3 mg/dL (0.5-1.0); GLOMERULAR FILTR. RATE CALC 41.0 mL/min (>90); GLUCOSE,RANDOM 95.0 mg/dL (70-105); SODIUM SERUM 136.0 mmol/L (136-145); TOTAL PROTEIN, SERUM 6.9 g/dL (6.0-8.3); UREA NITROGEN, BLOOD 24.0 mg/dL (7-18)
--- NOTE | 2025-05-05 08:12 | PN ---
Subjective Review of Systems PROGRESS NOTE Date of Visit: May 05, 2025 Time of Visit: 08:11 Events since last encounter IN [facility] C/O LBP DUE TO SUBACUTE FALL Subjective NO N/V AND AWAKE AND ALERT General: No Fever, No Chills, No Night Sweats, No Fatigue, No Malaise, No Appetite, No Other HEENT: No Head Aches, No Visual Changes, No Eye Pain, No Ear Pain, No Dysphasia, No Sinus Congestion, No Post Nasal Drip, No Sore Throat, No Other Pulmonary: No Dyspnea, No Cough, No Pleuritic Chest Pain, No Other Cardiovascular: No: Chest Pain, Palpitations, Orthopnea, Paroxysmal Noc. Dyspnea, Edema, Lt Headedness, Other Gastrointestinal: No: Nausea, Vomiting, Abdominal Pain, Diarrhea, Constipation, Melena, Hematochezia, Other Genitourinary: No Dysuria, No Frequency, No Incontinence, No Hematuria, No Retention, No Other Musculoskeletal: back pain; No: other, neck pain, shoulder pain, arm pain, hand pain, leg pain, foot pain Skin: No Urticaria, No Rash, No Other Neurological: No: Weakness, Numbness, Incoordination, Change in speech, Confusion, Seizures, Other Objective Vitals and I/O Vital Sign (Last 24 Hours) 05/04/25 05/05/25 21:50 03:50 Temp 97.3 Pulse 83 Resp 18 B/P (MAP) 144/82 Pulse Ox 98 O2 Delivery Room Air O2 Flow Rate 0 FiO2 21 General: Alert, Oriented X3, Cooperative, No acute distress HEENT: Atraumatic, PERRLA, EOMI, Mucous membr. moist/pink Neck: Supple, No JVD, No thyromegaly Lungs: Clear to auscultation, Normal air movement Heart: Regular rate, Regular rhythm Abdomen: Normal bowel sounds, Soft, No tenderness Extremities: No clubbing, No cyanosis, No edema Skin: No rashes, No breakdown, No significant lesion Neuro: Normal speech, Normal tone Psych/Mental Status: Mental status NL, Mood NL, Thoughts/Content NL Results RADIOLOGY: [] EKG: [] Laboratory Tests Test 05/04/25 15:55 05/04/25 16:11 05/04/25 17:12 05/04/25 18:07 Whole Blood Glucose 58 MG/DL (70-110) L 43 MG/DL (70-110) *L 117 MG/DL (70-110) #H White Blood Count 7.5 K/uL (4.8-10.8) Red Blood Count 4.01 MIL/uL (4.00-5.50) Hemoglobin 11.6 g/dL (12.0-16.0) L Hematocrit 35.9 % (36-48) L Mean Corpuscular Volume 89.5 fL (79-99) Mean Corpuscular Hemoglobin 28.9 pg (27.0-33.0) Mean Corpuscular Hemoglobin Concent 32.3 g/dL (32.0-36.0) Red Cell Distribution Width 12.6 % (11.0-15.5) Platelet Count 193 K/uL (130-400) Mean Platelet Volume 8.9 fL (7.5-10.5) Immature Granulocyte % (Auto) 0.3 % (0-1) Neutrophils (%) (Auto) 71.3 % (40.0-77.0) Lymphocytes (%) (Auto) 17.3 % (21.0-51.0) L Monocytes (%) (Auto) 9.1 % (3.0-13.0) Eosinophils (%) (Auto) 1.6 % (0.0-8.0) Basophils (%) (Auto) 0.4 % (0.0-5.0) Neutrophils # (Auto) 5.3 K/uL (1.8-7.7) Lymphocytes # (Auto) 1.3 K/uL (1.0-4.8) Monocytes # (Auto) 0.7 K/uL (0.1-1.0) Eosinophils # (Auto) 0.12 K/uL (0.00-0.70) Basophils # (Auto) 0.03 K/uL (0.00-0.20) Absolute Immature Granulocyte (auto 0.02 K/uL (0-1) Nucleated Red Blood Cells 0.0 % (0.0-0.19) Prothrombin Time 9.9 SEC (9.6-11.6) Prothromb Time International Ratio <= 0.93 (0.85-1.15) Activated Partial Thromboplast Time 25.2 SEC (26.3-35.5) L Sodium Level 136 mmol/L (136-145) Potassium Level 4.7 mmol/L (3.5-5.1) Chloride Level 101 mmol/L (101-111) Carbon Dioxide Level 29 mmol/L (21-32) Blood Urea Nitrogen 33 mg/dL (7-18) H Creatinine 1.5 mg/dL (0.5-1.0) H Glomerular Filtration Rate Calc 35 mL/min (>90) Random Glucose 68 mg/dL (70-105) L Hemoglobin A1c 5.8 % (4.0-6.0) Estimated Average Glucose (eAG) 120 mg/dL (70-126) Total Calcium 8.9 mg/dL (8.5-10.1) Troponin I High Sensitivity 21 ng/L (4-50) Test 05/04/25 19:30 05/04/25 20:38 05/04/25 21:40 05/04/25 22:50 Whole Blood Glucose 59 MG/DL (70-110) L 165 MG/DL (70-110) #H 145 MG/DL (70-110) H 63 MG/DL (70-110) #L Test 05/04/25 23:06 05/04/25 23:43 05/05/25 00:43 05/05/25 01:46 Whole Blood Glucose 63 MG/DL (70-110) L 99 MG/DL (70-110) # 70 MG/DL (70-110) 90 MG/DL (70-110) Test 05/05/25 02:44 05/05/25 03:44 05/05/25 04:21 05/05/25 04:42 Whole Blood Glucose 84 MG/DL (70-110) 70 MG/DL (70-110) 89 MG/DL (70-110) White Blood Count 7.0 K/uL (4.8-10.8) Red Blood Count 3.96 MIL/uL (4.00-5.50) L Hemoglobin 11.4 g/dL (12.0-16.0) L Hematocrit 34.9 % (36-48) L Mean Corpuscular Volume 88.1 fL (79-99) Mean Corpuscular Hemoglobin 28.8 pg (27.0-33.0) Mean Corpuscular Hemoglobin Concent 32.7 g/dL (32.0-36.0) Red Cell Distribution Width 12.7 % (11.0-15.5) Platelet Count 199 K/uL (130-400) Mean Platelet Volume 9.4 fL (7.5-10.5) Immature Granulocyte % (Auto) 0.4 % (0-1) Neutrophils (%) (Auto) 60.9 % (40.0-77.0) Lymphocytes (%) (Auto) 24.7 % (21.0-51.0) Monocytes (%) (Auto) 10.9 % (3.0-13.0) Eosinophils (%) (Auto) 2.7 % (0.0-8.0) Basophils (%) (Auto) 0.4 % (0.0-5.0) Neutrophils # (Auto) 4.2 K/uL (1.8-7.7) Lymphocytes # (Auto) 1.7 K/uL (1.0-4.8) Monocytes # (Auto) 0.8 K/uL (0.1-1.0) Eosinophils # (Auto) 0.19 K/uL (0.00-0.70) Basophils # (Auto) 0.03 K/uL (0.00-0.20) Absolute Immature Granulocyte (auto 0.03 K/uL (0-1) Nucleated Red Blood Cells 0.0 % (0.0-0.19) Sodium Level 136 mmol/L (136-145) Potassium Level 4.6 mmol/L (3.5-5.1) Chloride Level 101 mmol/L (101-111) Carbon Dioxide Level 31 mmol/L (21-32) Blood Urea Nitrogen 24 mg/dL (7-18) H Creatinine 1.3 mg/dL (0.5-1.0) H Glomerular Filtration Rate Calc 41 mL/min (>90) Random Glucose 95 mg/dL (70-105) Total Calcium 9.0 mg/dL (8.5-10.1) Magnesium Level 2.00 mg/dL (1.80-2.40) Total Bilirubin 0.4 mg/dL (0.2-1.0) Aspartate Amino Transf (AST/SGOT) 24 U/L (10-37) Alanine Aminotransferase (ALT/SGPT) 16 U/L (12-78) Alkaline Phosphatase 91 U/L (50-136) Total Protein 6.9 g/dL (6.0-8.3) Albumin 3.0 g/dL (3.5-5.0) L Thyroid Stimulating Hormone (TSH) 1.97 uIU/mL (0.36-3.74) Test 05/05/25 05:44 05/05/25 06:42 Whole Blood Glucose 81 MG/DL (70-110) 92 MG/DL (70-110) Medications Current Medications Dextrose 50 ml ONCE ONCE IV Last administered on 05/04/25at 17:12; Start 05/04/25 at 16:00; Stop 05/04/25 at 16:03; Status DC Dextrose 1,000 ml @ 75 mls/hr [id number] IV Last administered on 05/05/25at 04:46; Start 05/04/25 at 17:30; Stop 06/03/25 at 17:29 Acetaminophen 650 mg Q6H PRN PO; Start 05/04/25 at 19:00; Stop 05/05/25 at 02:30; Status DC Acetaminophen 650 mg Q4H PRN PO; Start 05/04/25 at 19:00; Stop 05/05/25 at 02:30; Status DC Ondansetron HCl 4 mg Q6H PRN IV; Start 05/04/25 at 19:00; Stop 06/03/25 at 18:59 Dextrose 1,000 ml @ 100 mls/hr Q10H IV Last administered on 05/04/25at 19:36; Start 05/04/25 at 19:00; Stop 06/03/25 at 18:59 Dextrose 50 ml AD PRN IV Last administered on 05/04/25at 19:41; Start 05/04/25 at 19:00; Stop 06/03/25 at 18:59 Glucagon 1 mg AD PRN IM; Start 05/04/25 at 19:00; Stop 06/03/25 at 18:59 Potassium Chloride 100 ml @ 100 mls/hr AD PRN IV; Start 05/04/25 at 19:00; Stop 06/03/25 at 18:59 Potassium Chloride 20 meq AD PRN PO; Start 05/04/25 at 19:00; Stop 06/03/25 at 18:59 Potassium Chloride 20 meq AD PRN PO; Start 05/04/25 at 19:00; Stop 06/03/25 at 18:59 Magnesium Sulfate 50 ml @ 0 mls/hr PROTOCOL PRN IV; Start 05/04/25 at 19:00; Stop 06/03/25 at 18:59 Lidocaine 1 each ONCE ONCE TP; Start 05/05/25 at 00:00; Stop 05/05/25 at 00:31; Status DC Assessment/Plan ASSESSMENT: THIS IS A 84 YR OLD WOMAN WITH HISTORY OF SEASONAL ALLERGIES DEMENTIA SENILE - AGE RELATED CAD [place] NONOBSTRUCTIVE WITH MILD POS CALCIUM SCORE UMAIR HYPERTENSIVE HEART AND RENAL DISEASE WITH CKD 2 W/O CHF EF 65% HYPERLIPIDEMIA - MIXED OBESITY/BMI 33 MICROALBUMINURIA MIXED URINARY INCONTINENCE METABOLIC SYNDROME 1ST DEGREE AV BLOCK OSTEOPENIA AORTIC VALVE REPLACEMENT W/21MM TRIFLECTA REPLACEMENT -10/28 P-AFIB SECONDARY HYPERCOAGULABLE STATE REFUSING ANTI COAGULATION S/P R TKA -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 TO EVAL AND TREAT PENDING ENDOCRINOLOGY RECOMMENDATIONS UPDATED AND ANSWERED ALL QUESTIONS FOR PATIENT AND EXTENDED FAMILY AT BEDSIDE TAI LEUNG MD May 05, 2025 08:12
--- NOTE | 2025-05-05 17:15 | NUR ---
D/C PLAN CM spoke to patient and daughter at bedside regarding d/c planning. Patient lives with spouse. Denies having any home health or provider services. Patient is independent with ADLs. States she has a shower chair at home. Plan for now is to return to previous setting. CM to f/u.
--- NOTE | 2025-05-05 20:36 | NUR ---
took patient to mri; returned in no distress; vitals as charted; patient in room now accompanied by daughter
[2025-05-05] MEDS: LIDOCAINE 4% ADH..PATCH TP ONE ×2 (21:27→21:29)
--- NOTE | 2025-05-05 22:12 | HMCIMG ---
STUDY MR Abdomen with and without intravenous contrast CLINICAL HISTORY Insulinoma TECHNIQUE Multisequence, multiplanar MR imaging of the abdomen performed with and without intravenous gadolinium contrast. Dynamic multiphasic post-contrast axial LAVA acquisitions obtained. COMPARISON MR abdomen without contrast dated 05/05/2025 09:29 EST FINDINGS LOWER THORAX Cardiomegaly is noted. There is bilateral basal pleural thickening with associated chronic lung parenchymal changes. No pleural effusion is demonstrated. LIVER Liver demonstrates diffuse signal changes in keeping with hepatic steatosis. No focal hepatic lesion is identified. GALLBLADDER AND BILE DUCTS Gallbladder appears unremarkable with no gallstones. Common bile duct measures approximately 0.8 cm in diameter with smooth distal tapering at the ampulla and no intrahepatic or extrahepatic biliary ductal dilatation. PANCREAS Pancreatic morphology and signal characteristics are within normal limits. No pancreatic mass, focal abnormal enhancement, or ductal dilatation is demonstrated on multiphasic post-contrast imaging. No definite lesion to suggest insulinoma is identified within the limits of this examination. SPLEEN Spleen is normal in size and signal intensity with no focal lesion. ADRENALS Adrenal glands are normal in size and configuration with no focal mass. KIDNEYS Both kidneys are normal in size and cortical thickness. 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 No hydronephrosis, nephrolithiasis, or enhancing renal mass is demonstrated. Mild perinephric fat stranding is present bilaterally, more pronounced on the right side, without a discrete collection. STOMACH AND BOWEL Limited evaluation of the stomach and bowel shows no acute mural thickening or obstruction. 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 No adjacent inflammatory mass or fluid collection is identified. LYMPH NODES No pathologically enlarged abdominal lymph nodes are seen. VASCULATURE No abdominal aortic aneurysm is demonstrated. Major abdominal arterial and venous structures appear patent on the obtained sequences. OTHER No free intraperitoneal fluid or pneumoperitoneum is evident. IMPRESSION * No MR evidence of a pancreatic mass or focal abnormal enhancement to suggest insulinoma, within the limits of this multiphasic MR abdomen. If clinical suspicion remains high, correlation with dedicated pancreatic protocol CT or nuclear medicine functional imaging may be considered. * Multiple bilateral simple renal cortical cysts measuring up to 1.5 cm with no post-contrast enhancement, consistent with Bosniak type I cysts, with mild bilateral perinephric fat stranding more on the right side and no evidence of obstructive uropathy or focal collection. 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 * Hepatic steatosis, cardiomegaly, basal pleural thickening with chronic lung changes, and common bile duct measuring 0.8 cm with smooth distal tapering and no biliary ductal dilatation, collectively representing chronic cardiometabolic and hepatobiliary changes without acute intra-abdominal abnormality. * No significant interval change compared with prior non-contrast MR abdomen of 05/05/2025. /[place]
--- NOTE | 2025-05-05 23:26 | NUR ---
SPOKE WITH EMIR MONREAL [employer] SCIENCE NURSE, NOTIFIED HER ABOUT PATIENT ELEVATED BLOOD PRESSURE, 165/99, OKAY TO GIVE ONE TIME DOSE OF HYDRALAZINE 10MG
[2025-05-06] VITALS (14 sets, daily range): BP systolic 120–149; BP diastolic 59–91; PULSE 81–99; RESP 11–20; TEMP 97.9–98.4; O2SAT 97–98
[2025-05-06] MEDS: LIDOCAINE 4% ADH..PATCH TP SCH (09:42)
--- NOTE | 2025-05-06 10:28 | PN ---
Subjective Review of Systems PROGRESS NOTE Date of Visit: May 06, 2025 Time of Visit: 10:28 Events since last encounter GLUCOSE HAS BEEN MAINTAINING Subjective NO N/V AND AWAKE AND ALERT General: No Fever, No Chills, No Night Sweats, No Fatigue, No Malaise, No Appetite, No Other HEENT: No Head Aches, No Visual Changes, No Eye Pain, No Ear Pain, No Dysphasia, No Sinus Congestion, No Post Nasal Drip, No Sore Throat, No Other Pulmonary: No Dyspnea, No Cough, No Pleuritic Chest Pain, No Other Cardiovascular: No: Chest Pain, Palpitations, Orthopnea, Paroxysmal Noc. Dyspnea, Edema, Lt Headedness, Other Gastrointestinal: No: Nausea, Vomiting, Abdominal Pain, Diarrhea, Constipation, Melena, Hematochezia, Other Genitourinary: No Dysuria, No Frequency, No Incontinence, No Hematuria, No Retention, No Other Musculoskeletal: back pain; No: other, neck pain, shoulder pain, arm pain, hand pain, leg pain, foot pain Skin: No Urticaria, No Rash, No Other Neurological: No: Weakness, Numbness, Incoordination, Change in speech, Confusion, Seizures, Other Objective Vitals and I/O Vital Sign (Last 24 Hours) 05/06/25 05/06/25 07:32 08:00 Temp 98.4 Pulse 99 Resp 18 B/P (MAP) 132/71 Pulse Ox 98 O2 Delivery Room Air* O2 Flow Rate 0 FiO2 21 Intake & Output (last 24hrs) 05/05/25 05/05/25 05/06/25 15:00 23:00 07:00 Intake Total 625.0 ml 625.0 ml 875.0 ml Output Total 1300 ml 1000 ml Balance 625.0 ml -675.0 ml -125.0 ml General: Alert, Oriented X3, Cooperative, No acute distress HEENT: Atraumatic, PERRLA, EOMI, Mucous membr. moist/pink Neck: Supple, No JVD, No thyromegaly Lungs: Clear to auscultation, Normal air movement Heart: Regular rate, Regular rhythm Abdomen: Normal bowel sounds, Soft, No tenderness Extremities: No clubbing, No cyanosis, No edema Skin: No rashes, No breakdown, No significant lesion Neuro: Normal speech, Normal tone Psych/Mental Status: Mental status NL, Mood NL, Thoughts/Content NL Results RADIOLOGY: [] EKG: [] Laboratory Tests Test 05/05/25 16:39 05/05/25 18:26 05/05/25 20:55 05/05/25 23:12 Whole Blood Glucose 120 MG/DL (70-110) H 136 MG/DL (70-110) H 141 MG/DL (70-110) H 172 MG/DL (70-110) H Test 05/06/25 03:33 05/06/25 05:43 05/06/25 08:04 Whole Blood Glucose 134 MG/DL (70-110) H 146 MG/DL (70-110) H 134 MG/DL (70-110) H Medications Current Medications Dextrose 50 ml ONCE ONCE IV Last administered on 05/04/25at 17:12; Start 05/04/25 at 16:00; Stop 05/04/25 at 16:03; Status DC Dextrose 1,000 ml @ 75 mls/hr [id number] IV Last administered on 05/05/25at 13:02; Start 05/04/25 at 17:30; Stop 06/03/25 at 17:29 Acetaminophen 650 mg Q6H PRN PO; Start 05/04/25 at 19:00; Stop 05/05/25 at 02:30; Status DC Acetaminophen 650 mg Q4H PRN PO; Start 05/04/25 at 19:00; Stop 05/05/25 at 02:30; Status DC Ondansetron HCl 4 mg Q6H PRN IV; Start 05/04/25 at 19:00; Stop 06/03/25 at 18:59 Dextrose 1,000 ml @ 125 mls/hr Q8H IV Last administered on 05/05/25at 23:47; Start 05/04/25 at 19:00; Stop 06/03/25 at 18:59 Dextrose 50 ml AD PRN IV Last administered on 05/04/25at 19:41; Start 05/04/25 at 19:00; Stop 06/03/25 at 18:59 Glucagon 1 mg AD PRN IM; Start 05/04/25 at 19:00; Stop 06/03/25 at 18:59 Potassium Chloride 100 ml @ 100 mls/hr AD PRN IV; Start 05/04/25 at 19:00; Stop 06/03/25 at 18:59 Potassium Chloride 20 meq AD PRN PO; Start 05/04/25 at 19:00; Stop 06/03/25 at 18:59 Potassium Chloride 20 meq AD PRN PO; Start 05/04/25 at 19:00; Stop 06/03/25 at 18:59 Magnesium Sulfate 50 ml @ 0 mls/hr PROTOCOL PRN IV; Start 05/04/25 at 19:00; Stop 06/03/25 at 18:59 Lidocaine 1 each ONCE ONCE TP Last administered on 05/05/25at 21:29; Start 05/05/25 at 00:00; Stop 05/05/25 at 00:31; Status DC Lidocaine 2 each DAILY TP Last administered on 05/06/25at 09:42; Start 05/06/25 at 09:00; Stop 06/05/25 at 08:59 Lidocaine 1 each STK-MED ONCE TP; Start 05/05/25 at 21:27; Stop 05/05/25 at 21:27; Status DC Hydralazine HCl 10 mg ONCE ONCE IV Last administered on 05/05/25at 23:50; Start 05/05/25 at 23:30; Stop 05/05/25 at 23:49; Status DC Hydralazine HCl 20 mg STK-MED ONCE .ROUTE; Start 05/05/25 at 23:45; Stop 1 07/06/24 at 23:45; Status DC Assessment/Plan RADIOLOGY ABD O - MR ABDOMEN W/WO CON FINDINGS LOWER THORAX Cardiomegaly is noted. There is bilateral basal pleural thickening with associated chronic lung parenchymal changes. No pleural effusion is demonstrated. LIVER Liver demonstrates diffuse signal changes in keeping with hepatic steatosis. No focal hepatic lesion is identified. GALLBLADDER AND BILE DUCTS Gallbladder appears unremarkable with no gallstones. Common bile duct measures approximately 0.8 cm in diameter with smooth distal tapering at the ampulla and no intrahepatic or extrahepatic biliary ductal dilatation. PANCREAS Pancreatic morphology and signal characteristics are within normal limits. No pancreatic mass, focal abnormal enhancement, or ductal dilatation is demonstrated on multiphasic post-contrast imaging. No definite lesion to suggest insulinoma is identified within the limits of this examination. SPLEEN Spleen is normal in size and signal intensity with no focal lesion. ADRENALS Adrenal glands are normal in size and configuration with no focal mass. KIDNEYS Both kidneys are normal in size and cortical thickness. 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 No hydronephrosis, nephrolithiasis, or enhancing renal mass is demonstrated. Mild perinephric fat stranding is present bilaterally, more pronounced on the right side, without a discrete collection. STOMACH AND BOWEL Limited evaluation of the stomach and bowel shows no acute mural thickening or obstruction. 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 No adjacent inflammatory mass or fluid collection is identified. LYMPH NODES No pathologically enlarged abdominal lymph nodes are seen. VASCULATURE No abdominal aortic aneurysm is demonstrated. Major abdominal arterial and venous structures appear patent on the obtained sequences. OTHER No free intraperitoneal fluid or pneumoperitoneum is evident. IMPRESSION * No MR evidence of a pancreatic mass or focal abnormal enhancement to suggest insulinoma, within the limits of this multiphasic MR abdomen. If clinical suspicion remains high, correlation with dedicated pancreatic protocol CT or nuclear medicine functional imaging may be considered. * Multiple bilateral simple renal cortical cysts measuring up to 1.5 cm with no post-contrast enhancement, consistent with Bosniak type I cysts, with mild bilateral perinephric fat stranding more on the right side and no evidence of obstructive uropathy or focal collection. 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 * Hepatic steatosis, cardiomegaly, basal pleural thickening with chronic lung changes, and common bile duct measuring 0.8 cm with smooth distal tapering and no biliary ductal dilatation, collectively representing chronic cardiometabolic and hepatobiliary changes without acute intra-abdominal abnormality. * No significant interval change compared with prior non-contrast MR abdomen of 05/05/2025. 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 W/O CHF EF 65% HYPERLIPIDEMIA - MIXED OBESITY/BMI 33 MICROALBUMINURIA MIXED URINARY INCONTINENCE METABOLIC SYNDROME 1ST DEGREE AV BLOCK OSTEOPENIA AORTIC VALVE REPLACEMENT W/21MM TRIFLECTA REPLACEMENT -10/28 P-AFIB SECONDARY HYPERCOAGULABLE STATE ON ELIQUIS S/P R TKA -10/29 OPIOID DEP IN REMISSION OVERACTIVE BLADDER MAJOR DEPRESSION IN FULL REMISSION SHE PRESENTED WITH RECURRENT HYPOGLYCEMIA R/O INSULINOMA SUBACUTE FALL WITH BILATERAL LBP PLAN: MRI W AND W/O CONTRAST BENIGN DISCUSSED WITH DR VINSON AND RECOMMENDING TRANSFER TO ICU TO INDUCE HYPOGLYCEMIA AND MONITOR GLUCOSE MORE CLOSELY AND ORDER FU LABS NEEDED DISCUSSED WITH DAUGHTER AND PATIENT AND HAVE REFUSED THIS ORDER DURING HER PREVIOUS ADMISSION DISCUSSED THE RATIONAL AND SHE WILL DISCUSS WITH OTHER FAMILY TO GIVE US A DECISION AND IF THE DECIDE TO PROCEED WILL TRANSFER AND FOLLOW ENDOCRINOLOGY RECOMMENDATIONS CONT LIDOCAINE PATCHES FOR LBP CONT INCREASE REHAB TOLERATED UPDATED AND ANSWERED ALL QUESTIONS FOR PATIENT AT BEDSIDE AND DAUGHTER BY PHONE TAI LEUNG MD May 06, 2025 10:28
--- NOTE | 2025-05-06 10:30 | HMCIMG ---
EXAM: MR Abdomen without Intravenous Contrast. CLINICAL HISTORY: Rule out insulinoma. TECHNIQUE: Multisequence, multiplanar magnetic resonance images of the abdomen without intravenous contrast. CONTRAST: No COMPARISON: None provided. FINDINGS: No pleural effusion. There is no focal abnormality appreciated within the liver, gallbladder, pancreas, spleen, or adrenals. Few, tiny, simple cortical cysts in bilateral kidneys. Mild non-specific bilateral perinephric edema. Small to moderate sized hiatus hernia. Suspected, small diverticulum along the medial aspect of the D2 segment of duodenum. There is no obvious bowel wall thickening. No abdominal aortic aneurysm. No lymphadenopathy. No ascites. There is no acute osseous abnormality. Moderate to severe extra scoliosis. Mild multilevel spondylosis. IMPRESSIONS: No acute process or mass in the abdomen. No pancreatic lesion. Small to moderate sized hiatus hernia. Suspected, small diverticulum along the medial aspect of the D2 segment of duodenum. /[place]
[2025-05-06] MEDS: ENOXAPARIN SODIUM 40 MG/0.4 ML SYRINGE SQ SCH (11:33)
[2025-05-06 12:09] LABS: CREATININE 1.3 mg/dL (0.5-1.0); GLOMERULAR FILTR. RATE CALC 41.0 mL/min (>90); GLUCOSE,RANDOM 133.0 mg/dL (70-105); SODIUM SERUM 130.0 mmol/L (136-145); UREA NITROGEN, BLOOD 17.0 mg/dL (7-18)
[2025-05-06] MEDS: TROLAMINE SALICYLATE CREAM 85 GM TUBE TP SCH (13:52)
--- NOTE | 2025-05-06 19:00 | NUR ---
As per Dr Robbins draw Insulin Level, Pro Insulin, C-Peptide, BMP, Beta Hydroxy, Butyrate when blood glucose levels are less than 55. Provider wants patient to be NPO except ice chips, stop the d10 infusion until labs are drawn, q1hr blood glucose checks, q15 min glucose checks when patient is symptomatic for hypoglycemia.
[2025-05-06] MEDS: LISINOPRIL 2.5 MG TABLET PO SCH (20:37)
[2025-05-07] VITALS (22 sets, daily range): BP systolic 83–141; BP diastolic 25–89; PULSE 70–102; RESP 12–34; TEMP 98.3–98.5; O2SAT 96–97
[2025-05-07 11:29] LABS: NUCLEATED RED BLOOD CELLS 0.0 % (0.0-0.19); PLATELET COUNT (AUTO) 229.0 K/uL (130-400); RED BLOOD CELL COUNT(AUTO) 4.33 MIL/uL (4.00-5.50); RED CELL DISTRIBUTION WIDTH 12.6 % (11.0-15.5); WHITE BLOOD COUNT (AUTO) 7.4 K/uL (4.8-10.8)
[2025-05-07 11:39] LABS: CREATININE 1.3 mg/dL (0.5-1.0); GLOMERULAR FILTR. RATE CALC 41.0 mL/min (>90); GLUCOSE,RANDOM 116.0 mg/dL (70-105); SODIUM SERUM 134.0 mmol/L (136-145); UREA NITROGEN, BLOOD 18.0 mg/dL (7-18)
--- NOTE | 2025-05-07 13:40 | PN ---
Subjective Review of Systems PROGRESS NOTE Date of Visit: May 07, 2025 Time of Visit: 13:39 Events since last encounter RESTING IN BED Subjective NO N/V AND AWAKE AND ALERT General: No Fever, No Chills, No Night Sweats, No Fatigue, No Malaise, No Appetite, No Other HEENT: No Head Aches, No Visual Changes, No Eye Pain, No Ear Pain, No Dysphasia , No Sinus Congestion, No Post Nasal Drip, No Sore Throat, No Other Pulmonary: No Dyspnea, No Cough, No Pleuritic Chest Pain, No Other Cardiovascular: No: Chest Pain, Palpitations, Orthopnea, Paroxysmal Noc. Dysp oneyda, Edema, Lt Headedness, Other Gastrointestinal: No: Nausea, Vomiting, Abdominal Pain, Diarrhea, Constipation, Melena, Hematochezia, Other Genitourinary: No Dysuria, No Frequency, No Incontinence, No Hematuria, No Retention, No Other Musculoskeletal: back pain; No: other, neck pain, shoulder pain, arm pain, hand pain, leg pain, foot pain Skin: No Urticaria, No Rash, No Other Neurological: No: Weakness, Numbness, Incoordination, Change in speech, Confusion, Seizures, Other Objective Vitals and I/O Vital Sign (Last 24 Hours) 05/07/25 05/07/25 05/07/25 05/07/25 03:37 07:45 08:00 10:00 Temp 98.4 Pulse 79 Resp 14 B/P (MAP) 116/63 Pulse Ox 98 O2 Delivery Room Air O2 Flow Rate 0 FiO2 21 Intake & Output (last 24hrs) 05/06/25 05/06/25 05/07/25 15:00 23:00 07:00 Intake Total 237 ml Output Total 1200 ml Balance 237 ml -1200 ml General: Alert, Oriented X3, Cooperative, No acute distress HEENT: Atraumatic, PERRLA, EOMI, Mucous membr. moist/pink Neck: Supple, No JVD, No thyromegaly Lungs: Clear to auscultation, Normal air movement Heart: Regular rate, Regular rhythm Abdomen: Normal bowel sounds, Soft, No tenderness Extremities: No clubbing, No cyanosis, No edema Skin: No rashes, No breakdown, No significant lesion Neuro: Normal speech, Normal tone Psych/Mental Status: Mental status NL, Mood NL, Thoughts/Content NL Results RADIOLOGY: [] EKG: [] Laboratory Tests Test 05/06/25 15:52 05/06/25 17:19 05/06/25 19:34 05/06/25 20:42 Whole Blood Glucose 184 MG/DL (70-110) H 121 MG/DL (70-110) H 148 MG/DL (70-110) H 138 MG/DL (70-110) H Test 05/06/25 21:33 05/06/25 22:35 05/07/25 00:01 05/07/25 01:13 Whole Blood Glucose 109 MG/DL (70-110) 104 MG/DL (70-110) 105 MG/DL (70-110) 105 MG/DL (70-110) Test 05/07/25 03:09 05/07/25 03:49 05/07/25 05:07 05/07/25 06:05 Whole Blood Glucose 98 MG/DL (70-110) 94 MG/DL (70-110) 97 MG/DL (70-110) 105 MG/DL (70-110) Test 05/07/25 08:11 05/07/25 10:29 05/07/25 11:06 05/07/25 13:12 Whole Blood Glucose 126 MG/DL (70-110) H 109 MG/DL (70-110) 122 MG/DL (70-110) H White Blood Count 7.4 K/uL (4.8-10.8) Red Blood Count 4.33 MIL/uL (4.00-5.50) Hemoglobin 12.5 g/dL (12.0-16.0) Hematocrit 38.2 % (36-48) Mean Corpuscular Volume 88.2 fL (79-99) Mean Corpuscular Hemoglobin 28.9 pg (27.0-33.0) Mean Corpuscular Hemoglobin Concent 32.7 g/dL (32.0-36.0) Red Cell Distribution Width 12.6 % (11.0-15.5) Platelet Count 229 K/uL (130-400) Mean Platelet Volume 9.4 fL (7.5-10.5) Nucleated Red Blood Cells 0.0 % (0.0-0.19) Sodium Level 134 mmol/L (136-145) L Potassium Level 4.2 mmol/L (3.5-5.1) Chloride Level 102 mmol/L (101-111) Carbon Dioxide Level 28 mmol/L (21-32) Blood Urea Nitrogen 18 mg/dL (7-18) Creatinine 1.3 mg/dL (0.5-1.0) H Glomerular Filtration Rate Calc 41 mL/min (>90) Random Glucose 116 mg/dL (70-105) H Total Calcium 9.2 mg/dL (8.5-10.1) Medications Current Medications Dextrose 50 ml ONCE ONCE IV Last administered on 05/04/25at 17:12; Start 05/04/25 at 16:00; Stop 05/04/25 at 16:03; Status DC Dextrose 1,000 ml @ 75 mls/hr [id number] IV Last administered on 05/05/25at 13:02; Start 05/04/25 at 17:30; Stop 05/06/25 at 16:02; Status DC Acetaminophen 650 mg Q6H PRN PO; Start 05/04/25 at 19:00; Stop 05/05/25 at 02:30; Status DC Acetaminophen 650 mg Q4H PRN PO; Start 05/04/25 at 19:00; Stop 05/05/25 at 02:30; Status DC Ondansetron HCl 4 mg Q6H PRN IV; Start 05/04/25 at 19:00; Stop 06/03/25 at 18:59 Dextrose 1,000 ml @ 125 mls/hr Q8H IV Last administered on 05/05/25at 23:47; Start 05/04/25 at 19:00; Stop 05/06/25 at 14:17; Status DC Dextrose 50 ml AD PRN IV Last administered on 05/04/25at 19:41; Start 05/04/25 at 19:00; Stop 06/03/25 at 18:59 Glucagon 1 mg AD PRN IM; Start 05/04/25 at 19:00; Stop 06/03/25 at 18:59 Potassium Chloride 100 ml @ 100 mls/hr AD PRN IV; Start 05/04/25 at 19:00; Stop 06/03/25 at 18:59 Potassium Chloride 20 meq AD PRN PO; Start 05/04/25 at 19:00; Stop 06/03/25 at 18:59 Potassium Chloride 20 meq AD PRN PO; Start 05/04/25 at 19:00; Stop 06/03/25 at 18:59 Magnesium Sulfate 50 ml @ 0 mls/hr PROTOCOL PRN IV; Start 05/04/25 at 19:00; Stop 06/03/25 at 18:59 Lidocaine 1 each ONCE ONCE TP Last administered on 05/05/25at 21:29; Start 05/05/25 at 00:00; Stop 05/05/25 at 00:31; Status DC Lidocaine 2 each DAILY TP Last administered on 05/07/25at 07:59; Start 05/06/25 at 09:00; Stop 06/05/25 at 08:59 Lidocaine 1 each STK-MED ONCE TP; Start 05/05/25 at 21:27; Stop 05/05/25 at 21:27; Status DC Hydralazine HCl 10 mg ONCE ONCE IV Last administered on 05/05/25at 23:50; Start 05/05/25 at 23:30; Stop 05/05/25 at 23:49; Status DC Hydralazine HCl 20 mg STK-MED ONCE .ROUTE; Start 05/05/25 at 23:45; Stop 05/05/25 at 23:45; Status DC Lisinopril 2.5 mg HS PO Last administered on 05/06/25at 20:37; Start 05/06/25 at 21:00; Stop 06/05/25 at 20:59 Trolamine Salicylate APPLY DIRECTED QID TP Last administered on 05/07/25at 08:06; Start 05/06/25 at 13:00; Stop 06/05/25 at 12:59 Diltiazem HCl 240 mg DAILY PO Last administered on 05/07/25at 08:04; Start 05/06/25 at 11:15; Stop 06/05/25 at 11:14 Citalopram Hydrobromide 10 mg DAILY PO; Start 05/07/25 at 09:00; Stop 06/06/25 at 08:59 Atorvastatin Calcium 10 mg HS PO Last administered on 05/06/25at 20:35; Start 05/06/25 at 21:00; Stop 06/05/25 at 20:59 Enoxaparin Sodium 40 mg DAILY SQ Last administered on 05/07/25at 08:05; Start 05/06/25 at 11:30; Stop 06/05/25 at 11:29 Assessment/Plan RADIOLOGY ABD WWO - MR ABDOMEN W/WO CON FINDINGS LOWER THORAX Cardiomegaly is noted. There is bilateral basal pleural thickening with associated chronic lung parenchymal changes. No pleural effusion is demonstrated. LIVER Liver demonstrates diffuse signal changes in keeping with hepatic steatosis. No focal hepatic lesion is identified. GALLBLADDER AND BILE DUCTS Gallbladder appears unremarkable with no gallstones. Common bile duct measures approximately 0.8 cm in diameter with smooth distal tapering at the ampulla and no intrahepatic or extrahepatic biliary ductal dilatation. PANCREAS Pancreatic morphology and signal characteristics are within normal limits. No pancreatic mass, focal abnormal enhancement, or ductal dilatation is demonstrated on multiphasic post-contrast imaging. No definite lesion to suggest insulinoma is identified within the limits of this examination. SPLEEN Spleen is normal in size and signal intensity with no focal lesion. ADRENALS Adrenal glands are normal in size and configuration with no focal mass. KIDNEYS Both kidneys are normal in size and cortical thickness. 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 No hydronephrosis, nephrolithiasis, or enhancing renal mass is demonstrated. Mild perinephric fat stranding is present bilaterally, more pronounced on the right side, without a discrete collection. STOMACH AND BOWEL Limited evaluation of the stomach and bowel shows no acute mural thickening or obstruction. 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 No adjacent inflammatory mass or fluid collection is identified. LYMPH NODES No pathologically enlarged abdominal lymph nodes are seen. VASCULATURE No abdominal aortic aneurysm is demonstrated. Major abdominal arterial and venous structures appear patent on the obtained sequences. OTHER No free intraperitoneal fluid or pneumoperitoneum is evident. IMPRESSION * No MR evidence of a pancreatic mass or focal abnormal enhancement to suggest insulinoma, within the limits of this multiphasic MR abdomen. If clinical suspicion remains high, correlation with dedicated pancreatic protocol CT or nuclear medicine functional imaging may be considered. * Multiple bilateral simple renal cortical cysts measuring up to 1.5 cm with no post-contrast enhancement, consistent with Bosniak type I cysts, with mild bilateral perinephric fat stranding more on the right side and no evidence of obstructive uropathy or focal collection. 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 * Hepatic steatosis, cardiomegaly, basal pleural thickening with chronic lung changes, and common bile duct measuring 0.8 cm with smooth distal tapering and no biliary ductal dilatation, collectively representing chronic cardiometabolic and hepatobiliary changes without acute intra-abdominal abnormality. * No significant interval change compared with prior non-contrast MR abdomen of 05/05/2025. 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
--- NOTE | 2025-05-07 22:35 | NUR ---
blood sugar 105
[2025-05-08] VITALS (25 sets, daily range): BP systolic 100–161; BP diastolic 51–93; PULSE 69–95; RESP 11–20; TEMP 98–98.6; O2SAT 92–96
--- NOTE | 2025-05-08 00:26 | NUR ---
BLOOD SUGAR 92
--- NOTE | 2025-05-08 02:17 | NUR ---
BLOOD SUGAR 100
--- NOTE | 2025-05-08 04:59 | NUR ---
BLOOD SUGAR 91
--- NOTE | 2025-05-08 06:33 | CONS ---
CONSULT NOTE: ASSESSMENT: Hypoglycemia of unclear etiology. rule out insulinoma TSH 1.97, AM Cortisol 12.5, lowest glucose was 43 mg/dl. Abdominal MRI show no pancreatic lesion. denies weight loss surgery and cortisol was normal. no history of diabetes. 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 MONITOR GLUCOSE hourly with POC glucose checks and sooner if hypoglycemia on CGM (patient wears CGM) recommend LABS WHEN GLUCOSE < 55 - INSULIN LEVEL, PROINSULIN, C PEPTIDE, BMP, BETAHYDROXY BUTYRATE monitor for signs/symptoms of hypoglycemia. if no hypoglycemia then will stop the fast. keep patient NPO except ice chips and water if needed. Patient will need IVF, RL 75 - 100 ml/hr. monitor electrolytes. use glucagon if severe hypoglycemia. Vital Signs 05/07/25 05/08/25 23:00 00:00 Temp 98.1 Pulse 70 Resp 13 B/P (MAP) 136/75 Pulse Ox 95 O2 Delivery Room Air* O2 Flow Rate 0 FiO2 21 Hematology Labs: Test 05/07/25 11:06 Range/Units White Blood Count 7.4 4.8-10.8 K/uL Red Blood Count 4.33 4.00-5.50 MIL/uL Hemoglobin 12.5 12.0-16.0 g/dL Hematocrit 38.2 36-48 % Mean Corpuscular Volume 88.2 79-99 fL Mean Corpuscular Hemoglobin 28.9 27.0-33.0 pg Mean Corpuscular Hemoglobin Concent 32.7 32.0-36.0 g/dL Red Cell Distribution Width 12.6 11.0-15.5 % Platelet Count 229 130-400 K/uL Mean Platelet Volume 9.4 7.5-10.5 fL Nucleated Red Blood Cells 0.0 0.0-0.19 % Chemistry Labs: Test 05/07/25 19:23 05/07/25 11:06 Range/Units Whole Blood Glucose 101 70-110 MG/DL Sodium Level 134 L 136-145 mmol/L Potassium Level 4.2 3.5-5.1 mmol/L Chloride Level 102 101-111 mmol/L Carbon Dioxide Level 28 21-32 mmol/L Blood Urea Nitrogen 18 7-18 mg/dL Creatinine 1.3 H 0.5-1.0 mg/dL Glomerular Filtration Rate Calc 41 >90 mL/min Random Glucose 116 H 70-105 mg/dL Total Calcium 9.2 8.5-10.1 mg/dL Current Medications Medications (Trade) Dose Ordered Sig/Miri Route Start Time Stop Time Status Last Admin Dose Admin Atorvastatin Calcium (LIPItor 10MG) 10 mg HS PO 05/06/25 21:00 06/05/25 20:59 05/07/25 20:01 10 MG Citalopram Hydrobromide (CeleXA 20MG TAB) 10 mg DAILY PO 05/07/25 09:00 06/06/25 08:59 Dextrose 1,000 ml @ 75 mls/hr [id number] IV 05/04/25 17:30 05/06/25 16:02 DC 05/05/25 13:02 75 MLS/HR Dextrose 1,000 ml @ 125 mls/hr Q8H IV 05/04/25 19:00 05/06/25 14:17 DC 05/05/25 23:47 125 MLS/HR Diltiazem HCl (CARDIzem 120MG CD) 240 mg DAILY PO 05/06/25 11:15 06/05/25 11:14 05/07/25 08:04 240 MG Enoxaparin Sodium (Lovenox) 40 mg DAILY SQ 05/06/25 11:30 06/05/25 11:29 05/07/25 08:05 40 MG Lidocaine (Lidocaine Patch 4%) 2 each DAILY TP 05/06/25 09:00 06/05/25 08:59 05/07/25 07:59 1 EACH Lisinopril (Prinivil 2.5mg) 2.5 mg HS PO 05/06/25 21:00 06/05/25 20:59 05/07/25 20:02 2.5 MG Trolamine Salicylate (Aspercream) APPLY DIRECTED QID TP 05/06/25 13:00 06/05/25 12:59 05/07/25 08:06 1 CLAUDE PAK MD May 08, 2025 06:33
--- NOTE | 2025-05-08 09:00 | NUR ---
blood sugar of 100 .
--- NOTE | 2025-05-08 10:00 | NUR ---
blood sugar of 108
--- NOTE | 2025-05-08 11:00 | NUR ---
blood sugar of 100
--- NOTE | 2025-05-08 12:00 | NUR ---
blood sugar of 104
--- NOTE | 2025-05-08 13:00 | NUR ---
blood sugar of 103
--- NOTE | 2025-05-08 14:00 | NUR ---
blood sugar 95
--- NOTE | 2025-05-08 15:00 | NUR ---
blood sugar 90
--- NOTE | 2025-05-08 15:13 | PN ---
Subjective Review of Systems PROGRESS NOTE Date of Visit: May 08, 2025 Time of Visit: 15:12 Events since last encounter PATIENT STABLE Subjective NO N/V AND AWAKE AND ALERT General: No Fever, No Chills, No Night Sweats, No Fatigue, No Malaise, No Appetite, No Other HEENT: No Head Aches, No Visual Changes, No Eye Pain, No Ear Pain, No Dysphasia , No Sinus Congestion, No Post Nasal Drip, No Sore Throat, No Other Pulmonary: No Dyspnea, No Cough, No Pleuritic Chest Pain, No Other Cardiovascular: No: Chest Pain, Palpitations, Orthopnea, Paroxysmal Noc. Dysp oneyda, Edema, Lt Headedness, Other Gastrointestinal: No: Nausea, Vomiting, Abdominal Pain, Diarrhea, Constipation, Melena, Hematochezia, Other Genitourinary: No Dysuria, No Frequency, No Incontinence, No Hematuria, No Retention, No Other Musculoskeletal: back pain; No: other, neck pain, shoulder pain, arm pain, hand pain, leg pain, foot pain Skin: No Urticaria, No Rash, No Other Neurological: No: Weakness, Numbness, Incoordination, Change in speech, Confusion, Seizures, Other Objective Vitals and I/O Vital Sign (Last 24 Hours) 05/08/25 05/08/25 12:00 13:00 Temp 98.6 Pulse 80 Resp 12 B/P (MAP) 132/84 Pulse Ox 97 O2 Delivery Room Air O2 Flow Rate 0 FiO2 21 General: Alert, Oriented X3, Cooperative, No acute distress HEENT: Atraumatic, PERRLA, EOMI, Mucous membr. moist/pink Neck: Supple, No JVD, No thyromegaly Lungs: Clear to auscultation, Normal air movement Heart: Regular rate, Regular rhythm Abdomen: Normal bowel sounds, Soft, No tenderness Extremities: No clubbing, No cyanosis, No edema Skin: No rashes, No breakdown, No significant lesion Neuro: Normal speech, Normal tone Psych/Mental Status: Mental status NL, Mood NL, Thoughts/Content NL Results RADIOLOGY: [] EKG: [] Laboratory Tests Test 05/07/25 15:45 05/07/25 18:15 05/07/25 19:23 05/08/25 06:46 Whole Blood Glucose 104 MG/DL (70-110) 105 MG/DL (70-110) 101 MG/DL (70-110) 98 MG/DL (70-110) Test 05/08/25 07:18 05/08/25 08:16 05/08/25 12:33 Whole Blood Glucose 90 MG/DL (70-110) 109 MG/DL (70-110) 103 MG/DL (70-110) Medications Current Medications Dextrose 50 ml ONCE ONCE IV Last administered on 05/04/25at 17:12; Start 05/04/25 at 16:00; Stop 05/04/25 at 16:03; Status DC Dextrose 1,000 ml @ 75 mls/hr [id number] IV Last administered on 05/05/25at 13:02; Start 05/04/25 at 17:30; Stop 05/06/25 at 16:02; Status DC Acetaminophen 650 mg Q6H PRN PO; Start 05/04/25 at 19:00; Stop 05/05/25 at 02:30; Status DC Acetaminophen 650 mg Q4H PRN PO; Start 05/04/25 at 19:00; Stop 05/05/25 at 02:30; Status DC Ondansetron HCl 4 mg Q6H PRN IV; Start 05/04/25 at 19:00; Stop 06/03/25 at 18:59 Dextrose 1,000 ml @ 125 mls/hr Q8H IV Last administered on 05/05/25at 23:47; Start 05/04/25 at 19:00; Stop 05/06/25 at 14:17; Status DC Dextrose 50 ml AD PRN IV Last administered on 05/04/25at 19:41; Start 05/04/25 at 19:00; Stop 06/03/25 at 18:59 Glucagon 1 mg AD PRN IM; Start 05/04/25 at 19:00; Stop 06/03/25 at 18:59 Potassium Chloride 100 ml @ 100 mls/hr AD PRN IV; Start 05/04/25 at 19:00; Stop 06/03/25 at 18:59 Potassium Chloride 20 meq AD PRN PO; Start 05/04/25 at 19:00; Stop 06/03/25 at 18:59 Potassium Chloride 20 meq AD PRN PO; Start 05/04/25 at 19:00; Stop 06/03/25 at 18:59 Magnesium Sulfate 50 ml @ 0 mls/hr PROTOCOL PRN IV; Start 05/04/25 at 19:00; Stop 06/03/25 at 18:59 Lidocaine 1 each ONCE ONCE TP Last administered on 05/05/25at 21:29; Start 05/05/25 at 00:00; Stop 05/05/25 at 00:31; Status DC Lidocaine 2 each DAILY TP Last administered on 05/08/25at 08:20; Start 05/06/25 at 09:00; Stop 06/05/25 at 08:59 Lidocaine 1 each STK-MED ONCE TP; Start 05/05/25 at 21:27; Stop 05/05/25 at 21:27; Status DC Hydralazine HCl 10 mg ONCE ONCE IV Last administered on 05/05/25at 23:50; Start 05/05/25 at 23:30; Stop 05/05/25 at 23:49; Status DC Hydralazine HCl 20 mg STK-MED ONCE .ROUTE; Start 05/05/25 at 23:45; Stop 05/05/25 at 23:45; Status DC Lisinopril 2.5 mg HS PO Last administered on 05/07/25at 20:02; Start 05/06/25 at 21:00; Stop 06/05/25 at 20:59 Trolamine Salicylate APPLY DIRECTED QID TP Last administered on 05/07/25at 08:06; Start 05/06/25 at 13:00; Stop 06/05/25 at 12:59 Diltiazem HCl 240 mg DAILY PO Last administered on 05/08/25at 08:20; Start 05/06/25 at 11:15; Stop 06/05/25 at 11:14 Citalopram Hydrobromide 10 mg DAILY PO; Start 05/07/25 at 09:00; Stop 06/06/25 at 08:59 Atorvastatin Calcium 10 mg HS PO Last administered on 05/07/25at 20:01; Start 05/06/25 at 21:00; Stop 06/05/25 at 20:59 Enoxaparin Sodium 40 mg DAILY SQ Last administered on 05/08/25at 08:21; Start 05/06/25 at 11:30; Stop 06/05/25 at 11:29 Assessment/Plan RADIOLOGY ABD WWO - MR ABDOMEN W/WO CON FINDINGS LOWER THORAX Cardiomegaly is noted. There is bilateral basal pleural thickening with associated chronic lung parenchymal changes. No pleural effusion is demonstrated. LIVER Liver demonstrates diffuse signal changes in keeping with hepatic steatosis. No focal hepatic lesion is identified. GALLBLADDER AND BILE DUCTS Gallbladder appears unremarkable with no gallstones. Common bile duct measures approximately 0.8 cm in diameter with smooth distal tapering at the ampulla and no intrahepatic or extrahepatic biliary ductal dilatation. PANCREAS Pancreatic morphology and signal characteristics are within normal limits. No pancreatic mass, focal abnormal enhancement, or ductal dilatation is demonstrated on multiphasic post-contrast imaging. No definite lesion to suggest insulinoma is identified within the limits of this examination. SPLEEN Spleen is normal in size and signal intensity with no focal lesion. ADRENALS Adrenal glands are normal in size and configuration with no focal mass. KIDNEYS Both kidneys are normal in size and cortical thickness. 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 No hydronephrosis, nephrolithiasis, or enhancing renal mass is demonstrated. Mild perinephric fat stranding is present bilaterally, more pronounced on the right side, without a discrete collection. STOMACH AND BOWEL Limited evaluation of the stomach and bowel shows no acute mural thickening or obstruction. 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 No adjacent inflammatory mass or fluid collection is identified. LYMPH NODES No pathologically enlarged abdominal lymph nodes are seen. VASCULATURE No abdominal aortic aneurysm is demonstrated. Major abdominal arterial and venous structures appear patent on the obtained sequences. OTHER No free intraperitoneal fluid or pneumoperitoneum is evident. IMPRESSION * No MR evidence of a pancreatic mass or focal abnormal enhancement to suggest insulinoma, within the limits of this multiphasic MR abdomen. If clinical suspicion remains high, correlation with dedicated pancreatic protocol CT or nuclear medicine functional imaging may be considered. * Multiple bilateral simple renal cortical cysts measuring up to 1.5 cm with no post-contrast enhancement, consistent with Bosniak type I cysts, with mild bilateral perinephric fat stranding more on the right side and no evidence of obstructive uropathy or focal collection. 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 * Hepatic steatosis, cardiomegaly, basal pleural thickening with chronic lung changes, and common bile duct measuring 0.8 cm with smooth distal tapering and no biliary ductal dilatation, collectively representing chronic cardiometabolic and hepatobiliary changes without acute intra-abdominal abnormality. * No significant interval change compared with prior non-contrast MR abdomen of 05/05/2025. 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
--- NOTE | 2025-05-08 17:00 | NUR ---
blood sugar 91
[2025-05-09] VITALS (19 sets, daily range): BP systolic 137–161; BP diastolic 71–99; PULSE 74–99; RESP 11–16; TEMP 97–97.7; O2SAT 94–96
--- NOTE | 2025-05-09 02:27 | NUR ---
1900 per family at bedside and patient, patient requests to avoid finger sticks for blood glucose checks since patient has a monitor to her are and readings in her cell phone. blood glucose log 1900: 98, 2000: 95, 2100:94, 2200:100, 2300:96, 0000: 92, 0100: 75
--- NOTE | 2025-05-09 06:58 | NUR ---
BLOOD GLUCOSE 0300: 85, 0400: 86, 0500: 84, 0600: 74
--- NOTE | 2025-05-09 07:00 | NUR ---
blood sugar :84
--- NOTE | 2025-05-09 08:00 | NUR ---
blood sugar :80
--- NOTE | 2025-05-09 09:00 | NUR ---
blood sugar :108
--- NOTE | 2025-05-09 10:00 | NUR ---
blood sugar :115
--- NOTE | 2025-05-09 13:00 | NUR ---
blood sugar :91
--- NOTE | 2025-05-09 14:00 | NUR ---
blood sugar :89
--- NOTE | 2025-05-09 15:00 | NUR ---
blood sugar :93
--- NOTE | 2025-05-09 17:13 | PN ---
Subjective Review of Systems PROGRESS NOTE Date of Visit: May 09, 2025 Time of Visit: 17:10 Events since last encounter PATIENT RESTING COMFORTABLY Subjective NO N/V AND AWAKE AND ALERT General: No Fever, No Chills, No Night Sweats, No Fatigue, No Malaise, No Appetite, No Other HEENT: No Head Aches, No Visual Changes, No Eye Pain, No Ear Pain, No Dysphasia, No Sinus Congestion, No Post Nasal Drip, No Sore Throat, No Other Pulmonary: No Dyspnea, No Cough, No Pleuritic Chest Pain, No Other Cardiovascular: No: Chest Pain, Palpitations, Orthopnea, Paroxysmal Noc. Dyspnea, Edema, Lt Headedness, Other Gastrointestinal: No: Nausea, Vomiting, Abdominal Pain, Diarrhea, Constipation, Melena, Hematochezia, Other Genitourinary: No Dysuria, No Frequency, No Incontinence, No Hematuria, No Retention, No Other Musculoskeletal: No: other, neck pain, shoulder pain, arm pain, back pain, hand pain, leg pain, foot pain Skin: No Urticaria, No Rash, No Other Neurological: No: Weakness, Numbness, Incoordination, Change in speech, Confusion, Seizures, Other Objective Vitals and I/O Vital Sign (Last 24 Hours) 05/09/25 05/09/25 12:00 16:00 Temp 97.0 Pulse 92 Resp 15 B/P (MAP) 152/74 Pulse Ox 94 O2 Delivery Room Air* O2 Flow Rate 0 FiO2 21 Intake & Output (last 24hrs) 05/08/25 05/08/25 05/09/25 15:00 23:00 07:00 Output Total 500 ml Balance -500 ml General: Alert, Oriented X3, Cooperative, No acute distress HEENT: Atraumatic, PERRLA, EOMI, Mucous membr. moist/pink Neck: Supple, No JVD, No thyromegaly Lungs: Clear to auscultation, Normal air movement Heart: Regular rate, Regular rhythm Abdomen: Normal bowel sounds, Soft, No tenderness Extremities: No clubbing, No cyanosis, No edema Skin: No rashes, No breakdown, No significant lesion Neuro: Normal speech, Normal tone Psych/Mental Status: Mental status NL, Mood NL, Thoughts/Content NL Results RADIOLOGY: [] EKG: [] Laboratory Tests Test 05/08/25 18:01 05/08/25 23:29 05/09/25 06:43 05/09/25 09:58 Whole Blood Glucose 95 MG/DL (70-110) 96 MG/DL (70-110) 89 MG/DL (70-110) 115 MG/DL (70-110) H Test 05/09/25 11:08 05/09/25 12:08 05/09/25 16:16 Whole Blood Glucose 96 MG/DL (70-110) 96 MG/DL (70-110) 85 MG/DL (70-110) Medications Current Medications Dextrose 50 ml ONCE ONCE IV Last administered on 05/04/25at 17:12; Start 05/04/25 at 16:00; Stop 05/04/25 at 16:03; Status DC Dextrose 1,000 ml @ 75 mls/hr [id number] IV Last administered on 05/05/25at 13:02; Start 05/04/25 at 17:30; Stop 05/06/25 at 16:02; Status DC Acetaminophen 650 mg Q6H PRN PO; Start 05/04/25 at 19:00; Stop 05/05/25 at 02:30; Status DC Acetaminophen 650 mg Q4H PRN PO; Start 05/04/25 at 19:00; Stop 05/05/25 at 02:30; Status DC Ondansetron HCl 4 mg Q6H PRN IV; Start 05/04/25 at 19:00; Stop 06/03/25 at 18:59 Dextrose 1,000 ml @ 125 mls/hr Q8H IV Last administered on 05/05/25at 23:47; Start 05/04/25 at 19:00; Stop 05/06/25 at 14:17; Status DC Dextrose 50 ml AD PRN IV Last administered on 05/04/25at 19:41; Start 05/04/25 at 19:00; Stop 06/03/25 at 18:59 Glucagon 1 mg AD PRN IM; Start 05/04/25 at 19:00; Stop 06/03/25 at 18:59 Potassium Chloride 100 ml @ 100 mls/hr AD PRN IV; Start 05/04/25 at 19:00; Stop 06/03/25 at 18:59 Potassium Chloride 20 meq AD PRN PO; Start 05/04/25 at 19:00; Stop 06/03/25 at 18:59 Potassium Chloride 20 meq AD PRN PO; Start 05/04/25 at 19:00; Stop 06/03/25 at 18:59 Magnesium Sulfate 50 ml @ 0 mls/hr PROTOCOL PRN IV; Start 05/04/25 at 19:00; Stop 06/03/25 at 18:59 Lidocaine 1 each ONCE ONCE TP Last administered on 05/05/25at 21:29; Start 05/05/25 at 00:00; Stop 05/05/25 at 00:31; Status DC Lidocaine 2 each DAILY TP Last administered on 05/09/25at 07:49; Start 05/06/25 at 09:00; Stop 06/05/25 at 08:59 Lidocaine 1 each STK-MED ONCE TP; Start 05/05/25 at 21:27; Stop 05/05/25 at 21:27; Status DC Hydralazine HCl 10 mg ONCE ONCE IV Last administered on 05/05/25at 23:50; Start 05/05/25 at 23:30; Stop 05/05/25 at 23:49; Status DC Hydralazine HCl 20 mg STK-MED ONCE .ROUTE; Start 05/05/25 at 23:45; Stop 05/05/25 at 23:45; Status DC Lisinopril 2.5 mg HS PO Last administered on 05/08/25at 21:39; Start 05/06/25 at 21:00; Stop 06/05/25 at 20:59 Trolamine Salicylate APPLY DIRECTED QID TP Last administered on 05/08/25at 21:41; Start 05/06/25 at 13:00; Stop 06/05/25 at 12:59 Diltiazem HCl 240 mg DAILY PO Last administered on 05/09/25at 08:20; Start 05/06/25 at 11:15; Stop 06/05/25 at 11:14 Citalopram Hydrobromide 10 mg DAILY PO; Start 05/07/25 at 09:00; Stop 06/06/25 at 08:59 Atorvastatin Calcium 10 mg HS PO Last administered on 05/08/25at 21:39; Start 05/06/25 at 21:00; Stop 06/05/25 at 20:59 Enoxaparin Sodium 40 mg DAILY SQ Last administered on 05/09/25at 08:20; Start 05/06/25 at 11:30; Stop 06/05/25 at 11:29 Assessment/Plan RADIOLOGY ABD WWO - MR ABDOMEN W/WO CON FINDINGS LOWER THORAX Cardiomegaly is noted. There is bilateral basal pleural thickening with associated chronic lung parenchymal changes. No pleural effusion is demonstrated. LIVER Liver demonstrates diffuse signal changes in keeping with hepatic steatosis. No focal hepatic lesion is identified. GALLBLADDER AND BILE DUCTS Gallbladder appears unremarkable with no gallstones. Common bile duct measures approximately 0.8 cm in diameter with smooth distal tapering at the ampulla and no intrahepatic or extrahepatic biliary ductal dilatation. PANCREAS Pancreatic morphology and signal characteristics are within normal limits. No pancreatic mass, focal abnormal enhancement, or ductal dilatation is demonstrated on multiphasic post-contrast imaging. No definite lesion to suggest insulinoma is identified within the limits of this examination. SPLEEN Spleen is normal in size and signal intensity with no focal lesion. ADRENALS Adrenal glands are normal in size and configuration with no focal mass. KIDNEYS Both kidneys are normal in size and cortical thickness. 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 No hydronephrosis, nephrolithiasis, or enhancing renal mass is demonstrated. Mild perinephric fat stranding is present bilaterally, more pronounced on the right side, without a discrete collection. STOMACH AND BOWEL Limited evaluation of the stomach and bowel shows no acute mural thickening or obstruction. 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 No adjacent inflammatory mass or fluid collection is identified. LYMPH NODES No pathologically enlarged abdominal lymph nodes are seen. VASCULATURE No abdominal aortic aneurysm is demonstrated. Major abdominal arterial and venous structures appear patent on the obtained sequences. OTHER No free intraperitoneal fluid or pneumoperitoneum is evident. IMPRESSION * No MR evidence of a pancreatic mass or focal abnormal enhancement to suggest insulinoma, within the limits of this multiphasic MR abdomen. If clinical suspicion remains high, correlation with dedicated pancreatic protocol CT or nuclear medicine functional imaging may be considered. * Multiple bilateral simple renal cortical cysts measuring up to 1.5 cm with no post-contrast enhancement, consistent with Bosniak type I cysts, with mild bilateral perinephric fat stranding more on the right side and no evidence of obstructive uropathy or focal collection. 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 * Hepatic steatosis, cardiomegaly, basal pleural thickening with chronic lung changes, and common bile duct measuring 0.8 cm with smooth distal tapering and no biliary ductal dilatation, collectively representing chronic cardiometabolic and hepatobiliary changes without acute intra-abdominal abnormality. * No significant interval change compared with prior non-contrast MR abdomen of 05/05/2025. 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 OPIOID DEP IN REMISSION OVERACTIVE BLADDER MAJOR DEPRESSION IN FULL REMISSION SHE PRESENTED WITH RECURRENT HYPOGLYCEMIA R/O INSULINOMA SUBACUTE FALL WITH BILATERAL LBP PLAN: PATIENT CONTINUES TO FAST AND LOWEST BS 74 DISCUSSED WITH ENDOCRINOLOGY AND RECOMMENDS CONTINUED ICU UNTIL 5 PM TODAY TO COMPLETE HER FAST AND IF NO SIGNIFICANT HYPOGLYCEMIA THEN OK TO START A LOW CARB LOW SWEETS DIET AND TRANSFER OUT TO A MEDICAL FLOOR AND OBSERVE ONE MORE DAY BEFORE DISCHARGE HOME LONG HAS HER GLUCOSE REMAINS STABLE HE DOES NOT THINK SHE HAS AN INSULINOMA AND CONTINUE OUTPATIENT WORK UP IF GLUCOSE < 55 - INSULIN LEVEL, PROINSULIN, C PEPTIDE, BMP, BETAHYDROXY BUTYRATE APPRECIATE ENDOCRINOLOGY INPUT CONT LIDOCAINE PATCHES FOR LBP CONT AMBULATION TOLERATED UPDATED AND ANSWERED ALL QUESTIONS FOR PATIENT AND DAUGHTER AT BEDSIDE TAI LEUNG MD May 09, 2025 17:13
[2025-05-10] VITALS (8 sets, daily range): BP systolic 136–156; BP diastolic 63–82; PULSE 63–97; RESP 11–19; TEMP 98–98.1; O2SAT 96
--- NOTE | 2025-05-10 07:34 | CONS ---
CONSULT NOTE: Endocrinology consult date of service: 05/10/25 chief complaint: hypoglycemia reason for consult: hypoglycemia HISTORY OF PRESENT ILLNESS: This is an 84 year old female with past medical history of hypertension,hyperlipidemia,atrial fibrillation,TIA,early dementia,osteoarthritis with aortic valve stenosis with aortic valve replacement ,PPM and hypoglycemia who present to the ED for complaints of hypoglycemia symptoms.Daughter Debbie was at bedside during my evaluation and reports,patient has been having episodes of hypoglycemia since last summer. Apparently patient has been travelling to [place] back and forth to visit her sick son and apparently according to the daughter patient was admitted to [place] on 04/21/2025 for similar complaints and was started on D10 W for almost 2days and eventually was weaned off and was discharged home she said. Last night patient blood sugar has been in the 40-50 again and was given with food and soda before ER visit, daughter decided to bring her to the ED for evaluation. abdominal MRI as an inpatient show no pancreatic lesion. Patient denies dizziness,headache,nausea,vomiting,chest pain,palpitation,abdominal pain and diarrhea. Latest vital signs temperature 98.8, heart rate 97, blood pressure 167/98 saturation 97% on room air. Labs: Hemoglobin 11, yecenia lesion. hematocrit 35, platelet count 193. BUN 33, creatinine 1.5, GFR 35 cm glucose 43 ,117 to 59 . troponin 21. While in the ER patient received D50 IVP and was treated with D10W . REVIEW OF SYSTEMS CONSTITUTIONAL: Denies fevers, chills, or night sweats. No unintentional weight loss reported. NEUROLOGICAL: Denies headache, amaurosis fugax, motor weakness, sensory deficit, vertigo/spinning sensation, gait abnormalities, or tremors. ENT: No hearing loss, otalgia, otorrhea, rhinitis, rhinorrhea, hoarseness, or sore throat. CARDIOVASCULAR: Denies any exertional angina, dyspnea on exertion, orthopnea, paroxysmal nocturnal dyspnea, palpitations, life-threatening arrhythmias, claudication. PULMONARY: Denies any shortness of breath, cough, phlegm/sputum, hemoptysis, pleuritic chest pain. SLEEP: Denies morning headaches, daytime somnolence or napping. Denies d ifficulty falling asleep, staying asleep, waking from sleep. Denies knowledge of snoring. GASTROINTESTINAL: Denies any type of dysphagia to either liquids or solids. Denies nausea, vomiting, pyrosis, early satiety, abdominal pain, diarrhea, constipation, or changes in stool consistency or caliber. Denies coffee-ground emesis, hematemesis, hematochezia, or melanotic stools. GENITOURINARY: Denies frequency, urgency, nocturia, hematuria or incontinence (Storage/Irritative symptoms.) Low urinary stream, straining to void, urinary intermittency or hesitancy, splitting of the voiding stream, terminal dribbling. ENDOCRINOLOGIC: Denies polyuria, polydipsia, polyphagia or heat/cold intolerances. HEMATOLOGIC: Denies thrombophilia/previous clots, or coagulopathy/bleeding disorders. ONCOLOGIC: Denies personal history of malignancy. DERMATOLOGIC: Denies rashes or pruritus. PSYCHIATRIC: Denies any suicidal or homicidal ideation. Denies hallucinations. PAST MEDICAL HISTORY: [ hypertension,hyperlipidemia,atrial fibrillation,TIA,early dementia,osteoarthritis with aortic valve stenosis with aortic valve replacement ,PPM and hypoglycemia ] PAST SURGICAL HISTORY: [Ppm ,aortic valve replacement, hysterectomy and right total knee arthroplasty ] PAST SOCIAL HISTORY: [ Patient lives with daughter. Patient denies alcohol tobacco and recreational drug use ] FAMILY HISTORY: [ Hypertension, cardiovascular disease and cancer ] Coded Allergies: acetaminophen (Unverified Allergy, Unknown, 10/28/18) PHYSICAL EXAM GENERAL APPEARANCE: The patient is awake, alert, and oriented, in no acute cardiopulmonary distress. NEUROLOGICAL: Cranial nerves II-XII grossly intact. Motor is 5/5 in bilateral upper and lower extremities proximal to distal. No sensory deficits. HEENT: Face is symmetric. Pupils are equal and reactive. Extraocular movements are intact. NECK: Supple. No JVD. No thyromegaly. No submental, submandibular, pre- /postauricular, occipital or supraclavicular lymphadenopathy. CHEST: Normal chest expansion. No Telemetry. LUNGS: Absence of any rales, rhonchi or any wheezing. CARDIOVASCULAR: Regular. S1 and S2 normal. No appreciable rubs, murmurs or gallops. ABDOMEN: Soft, nontender, and nondistended. There is no rebound, voluntary guarding, or rigidity. : Deferred. No He. EXTREMITIES: Non-edematous and not cyanotic. No clubbing. Good capillary refill. SKIN: No skin breakdown. ASSESSMENT: Hypoglycemia of unclear etiology. less likely insulinoma s there was no hypoglcyemia on 72 hours fast and lowest glucose was 74 mg/dl. TSH 1.97, AM Cortisol 12.5, lowest glucose was 43 mg/dl on presentation but no hypoglycemia on 72 hours fast. Abdominal MRI show no pancreatic lesion. denies weight loss surgery and cortisol was normal. no history of diabetes. IGF-1 and IGF-2 was normal as an outpatient. patient is diabetic but patient and the daughter (nurse) denies taking diabetic meds and meds are /monitored closely. she was started on acarbose but stopped after 2 days as it did not help per daughter. labs show ckd-3 but denies liver disease. my suspicion is very low for insulinoma. 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 MONITOR GLUCOSE q x 6 hourly with POC glucose checks continue CGM (patient wears CGM) INSULIN LEVEL, PROINSULIN, C PEPTIDE, BMP, BETAHYDROXY BUTYRATE were not done as glucose did not decrease to less than 55 mg/dl. continue regular diet. monitor electrolytes. educated patient and family in detail regarding hypoglycemia. cut down high carbs food. avoid simple carbs and educated on hypoglycemia treatment. patient can eat healthy diet every 3-4 hours. Vital Signs 05/09/25 05/10/25 20:00 05:37 Temp 97.7 Pulse 87 Resp 19 B/P (MAP) 154/80 Pulse Ox 96 O2 Delivery Room Air O2 Flow Rate 0 FiO2 21 Chemistry Labs: Test 05/09/25 17:15 Range/Units Whole Blood Glucose 87 70-110 MG/DL Current Medications Medications (Trade) Dose Ordered Sig/Miri Route Start Time Stop Time Status Last Admin Dose Admin Atorvastatin Calcium (LIPItor 10MG) 10 mg HS PO 05/06/25 21:00 06/05/25 20:59 05/09/25 21:40 10 MG Citalopram Hydrobromide (CeleXA 20MG TAB) 10 mg DAILY PO 05/07/25 09:00 06/06/25 08:59 Dextrose 1,000 ml @ 75 mls/hr [id number] IV 05/04/25 17:30 05/06/25 16:02 DC 05/05/25 13:02 75 MLS/HR Dextrose 1,000 ml @ 125 mls/hr Q8H IV 05/04/25 19:00 05/06/25 14:17 DC 05/05/25 23:47 125 MLS/HR Diltiazem HCl (CARDIzem 120MG CD) 240 mg DAILY PO 05/06/25 11:15 06/05/25 11:14 05/09/25 08:20 240 MG Enoxaparin Sodium (Lovenox) 40 mg DAILY SQ 05/06/25 11:30 06/05/25 11:29 05/09/25 08:20 40 MG Lidocaine (Lidocaine Patch 4%) 2 each DAILY TP 05/06/25 09:00 06/05/25 08:59 05/09/25 07:49 2 EACH Lisinopril (Prinivil 2.5mg) 2.5 mg HS PO 05/06/25 21:00 06/05/25 20:59 05/09/25 21:40 2.5 MG Trolamine Salicylate (Aspercream) APPLY DIRECTED QID TP 05/06/25 13:00 06/05/25 12:59 05/09/25 21:43 CLAUDE LEARY MD May 10, 2025 07:34
--- NOTE | 2025-05-10 09:06 | NUR ---
REPORT AND CARE GIVEN TO LLY NURSE, ALL QUESTIONS ANSWERED. VITALS CHARTED. NO DISTRESS NOTED, FAMILY AT BEDSIDE AND AWARE OF TRANSFER.
--- NOTE | 2025-05-10 15:16 | DS ---
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 There is bilateral basal pleural thickening with associated chronic lung parenchymal changes. No pleural effusion is demonstrated. LIVER Liver demonstrates diffuse signal changes in keeping with hepatic steatosis. No focal hepatic lesion is identified. GALLBLADDER AND BILE DUCTS Gallbladder appears unremarkable with no gallstones. Common bile duct measures approximately 0.8 cm in diameter with smooth distal tapering at the ampulla and no intrahepatic or extrahepatic biliary ductal dilatation. PANCREAS Pancreatic morphology and signal characteristics are within normal limits. No pancreatic mass, focal abnormal enhancement, or ductal dilatation is demonstrated on multiphasic post-contrast imaging. No definite lesion to suggest insulinoma is identified within the limits of this examination. SPLEEN Spleen is normal in size and signal intensity with no focal lesion. ADRENALS Adrenal glands are normal in size and configuration with no focal mass. KIDNEYS Both kidneys are normal in size and cortical thickness. 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 No hydronephrosis, nephrolithiasis, or enhancing renal mass is demonstrated. Mild perinephric fat stranding is present bilaterally, more pronounced on the right side, without a discrete collection. STOMACH AND BOWEL Limited evaluation of the stomach and bowel shows no acute mural thickening or obstruction. 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 No adjacent inflammatory mass or fluid collection is identified. LYMPH NODES No pathologically enlarged abdominal lymph nodes are seen. VASCULATURE No abdominal aortic aneurysm is demonstrated. Major abdominal arterial and venous structures appear patent on the obtained sequences. OTHER No free intraperitoneal fluid or pneumoperitoneum is evident. IMPRESSION * No MR evidence of a pancreatic mass or focal abnormal enhancement to suggest insulinoma, within the limits of this multiphasic MR abdomen. If clinical suspicion remains high, correlation with dedicated pancreatic protocol CT or nuclear medicine functional imaging may be considered. * Multiple bilateral simple renal cortical cysts measuring up to 1.5 cm with no post-contrast enhancement, consistent with Bosniak type I cysts, with mild bilateral perinephric fat stranding more on the right side and no evidence of obstructive uropathy or focal collection. 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 * Hepatic steatosis, cardiomegaly, basal pleural thickening with chronic lung changes, and common bile duct measuring 0.8 cm with smooth distal tapering and no biliary ductal dilatation, collectively representing chronic cardiometabolic and hepatobiliary changes without acute intra-abdominal abnormality. * No significant interval change compared with prior non-contrast MR abdomen of 05/05/2025. HOSPITAL COURSE: THIS IS AN 84 YR OLD WOMAN WITH THE ABOVE PMH WHO PRESENTED WITH RECURRENT SYMPTOMATIC HYPOGLYCEMIA R/O INSULINOMA. SHE WAS TREATED WITH D 10 TO KEEP HER FROM HAVING HYPOGLYCEMIA AND WAS EVALUATED BY ENDOCRINOLOGY. A FOLLOW UP ABDOMINAL MRI WITH AND WITHOUT WAS DONE AND DID NOT SHOW ANY INSULINOMA. WHEN STABLE ENDOCRINOLOGY RECOMMENDED A 3 DAY FAST WHILE BEING OBSERVED IN THE ICU WITH FREQUENT GLUCOSE CHECKS AND PATIENT WAS ALSO WEARING A CGM. HOWEVER, HER GLUCOSE NEVER DROPPED AGAIN UNDER 74 AND SHE WAS THEN TRANSFERRED BACK TO A MEDICAL FLOOR, STARTED ON A DIET AND HER GLUCOSE REMAINED STABLE WITHOUT ANY RECURRENT HYPOGLYCEMIA. PER ENDO Hypoglycemia was of unclear etiology and less likely insulinoma. TSH 1.97, AM Cortisol 12.5, lowest glucose was 43 mg/dl on presentation but no hypoglycemia on 72 hours fast. Abdominal MRI show no pancreatic lesion and she denied any weight loss surgery and cortisol was normal. There was no history of diabetes. IGF-1 and IGF-2 was normal as an outpatient. is diabetic but patient and the daughter (nurse) denies taking diabetic medications and her medications are /monitored closely. She was started on acarbose but stopped after 2 days as it did not help per daughter. Labs showed ckd-3 but denies liver disease. Suspicion is very low for insulinoma. Patient was to continue CGM (patient wears CGM) An INSULIN LEVEL, PROINSULIN, C PEPTIDE, BMP, BETA-HYDROXY BUTYRATE were not done as glucose did not decrease to less than 55 mg/dl. She was to continue regular diet. She was educated along with family in detail regarding hypoglycemia with diet and how to treat it. Patient and family also had a glucagon pen for emergency use at home. She was to cut down high carbohydrate foods, avoid simple carbohydrates and eat healthy diet every 3-4 hours. SHE ALSO HAD A SUBACUTE FALL WITH BILATERAL LBP AND WAS TREATED WITH LIDOCAINE PATCHES AND REHAB AND DID WELL. SHE REMAINED STABLE AND CLEARED BY ENDO FOR DISCHARGE. UPON DISCHARGE THE PATIENT WAS GIVEN A STANDING STAT LAB ORDER INSULIN LEVEL, PROINSULIN, C PEPTIDE, BMP, BETA-HYDROXY BUTYRATE FOR GLUCOSE < 55. DIET: HEART HEALTH ACTIVITY: AT BIGG CONDITION: STABLE EQUIPMENT: NONE FOLLOW UP APPOINTMENT(S): DR SHERYL Massey 2-5 DAYS DISPOSITION: HOME CODE STATUS: FULL OTHER - NO OTHER TEST RESULTS OR STUDIES MEDICATION RECONCILIATION : Home Medications were reconciled with hospital medications upon discharge and discussed with patient and/or responsible alliance party. RESUME PREVIOUS HOME MEDS STOPPED ACARBOSE SINCE DID NOT HELP ^ Home Meds Reported Medications Cholecalciferol (Vitamin D3) (Vitamin D3) 10 Mcg (400 Unit) Tab.chew, 1 TAB PO DAILY for 30 Days, #30 TAB 0 Refills 05/04/25 Glucagon,Human Recombinant (Glucagon,Human Recombinant Kit) 1 Mg Kit, 1 MG IJ AD, KIT 05/04/25 Escitalopram Oxalate (Escitalopram Oxalate) 5 Mg Tablet, 1 TAB PO DAILY for 30 Days, #30 TAB 0 Refills 05/04/25 Diltiazem HCl (Cardizem Cd) 240 Mg Cap.er.24h, 1 CAP PO DAILY for 30 Days, #30 CAP 0 Refills 05/04/25 Dextrose (Glucose) 4 Gram Tab.chew, 4 GM PO AD, TAB.CHEW 05/04/25 Lidocaine (Lidocaine) 5 % Adh..patch, 1 PATCH TP DAILY for 30 Days, #30 PATCH 0 Refills 05/04/25 Diclofenac Sodium (Diclofenac Sodium) 1 % Gel..gram., 1 APPL TP QID for 21 Days, #100 GM 0 Refills 05/04/25 Apixaban (Eliquis) 5 Mg Tablet, 1 TAB PO BID for 30 Days, #60 TAB 0 Refills 05/04/25 Lisinopril (Lisinopril) 2.5 Mg Tablet, 2.5 MG PO HS, TAB 12/21/19 Rosuvastatin Calcium (Rosuvastatin Calcium) 5 Mg Tablet, 5 MG PO HS, TAB 12/21/19 Discontinued Reported Medications Acarbose (Acarbose) 25 Mg Tablet, 1 TAB PO AD for diabetes for 30 Days, #30 TAB 0 Refills 05/04/25 Metoprolol Tartrate (Metoprolol Tartrate) 25 Mg Tablet, 25 MG PO BID, TAB 12/22/19 Aspirin (Aspirin EC) 81 Mg Tablet.dr, 81 MG PO DAILY, TAB 12/21/19 Amlodipine Besylate (Amlodipine Besylate) 10 Mg Tablet, 10 MG PO AM, TAB 10/29/18 Hydrochlorothiazide (Hydrochlorothiazide) 25 Mg Tablet, 25 MG PO AM, TAB 10/29/18 Discontinued Scripts Tramadol Hcl (Tramadol HCl) 50 Mg Tablet, 50 MG PO [id number] PRN for PAIN LEVEL 6 TO 10, #30 TAB 0 Refills Prov:CARRINGTON RUDD MD 12/22/19 LUCRETIA SAENZ MD May 10, 2025 15:16
--- NOTE | 2025-05-10 16:15 | NUR ---
DISCHARGE PIV DC'D PATIENT INFORMED OF FOLLOW UP APPOINTMENT WITH DR. LEUNG FOR TOMORROW AT 1515. ALL QUESTIONS ANSWERED PRIOR TO DISCHARGE.
== END 2025-05-10 16:19 | disposition home or self-care (01) | DRG 641 ==
LOC: EDH 15:51 → EDHIP 18:42 → 2AH 21:45 → 2BH 05-06 17:05 → 3AH 05-10 09:16
PROVIDERS: ADMIT Internal Medicine; ATTEND Internal Medicine
DX: E16.2 Hypoglycemia, unspecified (principal); D68.69 Other thrombophilia; Z79.01 Long term (current) use of anticoagulants; E66.9 Obesity, unspecified; F03.90 Unspecified dementia, unspecified severity, without behavioral disturbance, psychotic disturbance, mood disturbance, and anxiety; I13.10 Hypertensive heart and chronic kidney disease without heart failure, with stage 1 through stage 4 chronic kidney disease, or unspecified chronic kidney disease; F32.5 Major depressive disorder, single episode, in full remission; K76.0 Fatty (change of) liver, not elsewhere classified; N18.30 Chronic kidney disease, stage 3 unspecified; I35.0 Nonrheumatic aortic (valve) stenosis; E78.5 Hyperlipidemia, unspecified; E88.810 Metabolic syndrome; I44.0 Atrioventricular block, first degree; I48.0 Paroxysmal atrial fibrillation; J30.2 Other seasonal allergic rhinitis; N39.46 Mixed incontinence; I25.10 Atherosclerotic heart disease of native coronary artery without angina pectoris; M85.80 Other specified disorders of bone density and structure, unspecified site; Z96.651 Presence of right artificial knee joint; N32.81 Overactive bladder; N28.1 Cyst of kidney, acquired; Z79.899 Other long term (current) drug therapy; Z82.49 Family history of ischemic heart disease and other diseases of the circulatory system; Z86.73 Personal history of transient ischemic attack (TIA), and cerebral infarction without residual deficits; Z95.2 Presence of prosthetic heart valve; Z90.710 Acquired absence of both cervix and uterus; Z95.0 Presence of cardiac pacemaker; Z68.31 Body mass index [BMI] 31.0-31.9, adult
CPT/HCPCS: 36415; 74181; 74183; 80048; 80053; 82010; 82533; 82948; 83036; 83525; 83735; 84206; 84443; 84484; 84681; 85025; 85027; 85610; 85730; 93005; 96374; 99291; G0378; J0360; J1650; J7070